=== PATIENT | female | born 1930 | race Caucasian/White ===

== ENCOUNTER 2017-05-13 14:01 | Inpatient (IN) | payer MEDICARE, MEDICAID ==
[~2017-05-13] VITALS: Ht 160 cm; Wt 54.4 kg
--- NOTE | 2017-05-13 14:30 | NUR ---
APPLE JUICE GIVEN TO PT.
[2017-05-13] MEDS ORDERED: AMIN30LI2 PO (15:18)
[2017-05-13] MEDS ORDERED: ONDA4TAB10 PO (15:18)
[2017-05-13] MEDS ORDERED: ASCO-340 PO (15:18)
[2017-05-13] MEDS ORDERED: CARV6.252 PO (15:18)
[2017-05-13] MEDS ORDERED: MIRT15TA PO (15:18)
[2017-05-13] MEDS ORDERED: ACET325T53 PO (15:18)
[2017-05-13] MEDS ORDERED: CYAN10009 PO (15:18)
[2017-05-13] MEDS ORDERED: BLOO-140 IN (15:18)
[2017-05-13] MEDS ORDERED: ATOR10TA PO (15:18)
[2017-05-13] MEDS ORDERED: ASPI81TA31 PO (15:18)
[2017-05-13] MEDS ORDERED: ARIP10TA9 PO (15:18)
[2017-05-13] MEDS ORDERED: NITR0.4T48 SL (15:18)
[2017-05-13] MEDS ORDERED: ASCO500T9 PO (15:18)
[2017-05-13] MEDS ORDERED: NUT.237L70 PO (15:18)
[2017-05-13 15:39] LABS: BASOPHILS % (AUTO) 0.2 % (0.0-2.0); EOSINOPHILS # (AUTO) 0.1 K/uL (0.0-0.7); EOSINOPHILS % (AUTO) 0.7 % (0.0-7.0); HEMOGLOBIN 13.4 g/dL (10.9-14.3); LYMPHOCYTES # (AUTO) 1.3 K/uL (20.0-40.0); LYMPHOCYTES % (AUTO) 12.9 % (20.5-51.5); MEAN CORPUSCULAR HEMOGLOBIN 31.8 uug (24.7-32.8); MEAN CORPUSCULAR HGB CONC 34 g/dL (32.3-35.6); MEAN CORPUSCULAR VOLUME 92.6 fL (75.5-95.3); MONOCYTES # (AUTO) 0.5 K/uL (2.0-10.0); MONOCYTES % (AUTO) 5.3 % (0.0-11.0); NEUTROPHILS # (AUTO) 8.1 K/uL (1.8-8.9); NEUTROPHILS % (AUTO) 80.9 % (38.5-71.5); PLATELET COUNT (AUTO) 213 K/uL (179-408)
--- NOTE | 2017-05-13 16:30 | NUR ---
PT REFUSES TO EAT OR DRINK. MDNOTIFIED.
[2017-05-13 16:35] LABS: ALANINE AMINOTRANSFERASE 11 U/L (14-59); ALKALINE PHOSPHATASE 61 U/L (50-136); ASPARTATE AMINOTRANSFERASE 22 U/L (15-37); BILIRUBIN,TOTAL 0.7 mg/dL (0.2-1.0); CARBON DIOXIDE 24 mmol/L (21-32); CHLORIDE 108 mmol/L (98-107); CREATINE KINASE, TOTAL 54 U/L (26-192); GLUCOSE 78 mg/dL (74-106); TOTAL PROTEIN, SERUM 6.8 g/dL (6.4-8.2); UREA NITROGEN, BLOOD 15 mg/dL (7-18)
[2017-05-13 16:36] LABS: POTASSIUM 4.6 mmol/L (3.5-5.1)
[2017-05-13] MEDS ORDERED: IV D5W-0.45% NS 1000 ML BAG IV ONE (16:45)
--- NOTE | 2017-05-13 16:58 | NUR ---
DR. MORALES IADMITTED THE PT , TRANSFER TO FLOOR PENDING ON BED AVAILABILITY
--- NOTE | 2017-05-13 19:07 | NUR ---
offered pt food/snack multiple times. pt refuses to eat.
[2017-05-13 21:10] VITALS: BP 128/53
--- NOTE | 2017-05-13 22:00 | NUR ---
Pt. admitted to TELE, under care of Dr. Fox Belongs List completed
--- NOTE | 2017-05-13 22:00 | NUR ---
ADMITTED PATIENT TO TELE FLOOR, VITAL SIGNS STABLE. PATIENT IS NIUEAN SPEAKING BUT UNDERSTANDS A LITTLE MAURITANIAN. PATIENT NOTED WITH BLANCHABLE REDNESS TO THE BUTTOCKS AND WOUND NOTED TO RIGHT BUTTOCK. PHOTOGRAPH TAKEN AND PLACED IN CHART.
[2017-05-13] MEDS ORDERED: DEXTROSE 50% 50 ML DISP.SYRIN IV PRN (22:30)
[2017-05-13] MEDS ORDERED: ACETAMINOPHEN 325 MG TABLET PO PRN (22:30)
[2017-05-13] MEDS ORDERED: ONDANSETRON 4 MG/2 ML VIAL IV PRN (22:30)
[2017-05-13] MEDS ORDERED: NITROGLYCERIN 0.4 MG/TAB BOTTLE SL PRN (22:30)
[2017-05-13] MEDS: IV D5/ 0.9% NACL 1,000 ML IV PRN (23:16)
[2017-05-14] VITALS: BP 104/59
[2017-05-14] MEDS ORDERED: Z GUARD REMEDY PASTE 57 GM TUBE TOP PRN (01:00)
[2017-05-14 04:00] VITALS: BP 127/49
--- NOTE | 2017-05-14 06:33 | NUR ---
PATIENT SLEPT WELL LAST NIGHT. NO DISTRESS NOTED. ALL NEEDS ATTENDED TO. PATIENT REFUSED TO TAKE WATER. NO S/S HYPOGLYCEMIA NOTED.
--- NOTE | 2017-05-14 07:20 | NUR ---
RECEIVED REPORT FROM PROOFER BLACK AND WHITE NURSE, PATIENT IN BED ASLEEP, NO EVIDENCE OF DISTRESS NOTED, BED IN LOW POSITION, SIDE RAILS UP X2.
[2017-05-14] MEDS: BLOOD SUGAR DIAGNOSTIC 1 EACH STRIP VI SCH ×4 (07:30→21:31)
[2017-05-14 08:24] LABS: BASOPHILS % (AUTO) 0.2 % (0.0-2.0); EOSINOPHILS % (AUTO) 0.6 % (0.0-7.0); HEMATOCRIT 37.3 % (31.2-41.9); HEMOGLOBIN 12.8 g/dL (10.9-14.3); LYMPHOCYTES # (AUTO) 0.7 K/uL (20.0-40.0); LYMPHOCYTES % (AUTO) 12.2 % (20.5-51.5); MEAN CORPUSCULAR HEMOGLOBIN 31.5 uug (24.7-32.8); MEAN CORPUSCULAR HGB CONC 34 g/dL (32.3-35.6); MEAN CORPUSCULAR VOLUME 92.1 fL (75.5-95.3); MONOCYTES # (AUTO) 0.5 K/uL (2.0-10.0); MONOCYTES % (AUTO) 8.1 % (0.0-11.0); NEUTROPHILS # (AUTO) 4.8 K/uL (1.8-8.9); NEUTROPHILS % (AUTO) 78.9 % (38.5-71.5); PLATELET COUNT (AUTO) 196 K/uL (179-408); RED BLOOD CELL COUNT(AUTO) 4.05 MIL/uL (3.63-4.92)
[2017-05-14 08:49] LABS: ALANINE AMINOTRANSFERASE 13 U/L (14-59); ALKALINE PHOSPHATASE 59 U/L (50-136); ASPARTATE AMINOTRANSFERASE 16 U/L (15-37); BILIRUBIN,TOTAL 0.4 mg/dL (0.2-1.0); CARBON DIOXIDE 27 mmol/L (21-32); CHLORIDE 108 mmol/L (98-107); CHOLESTEROL 107 mg/dL (<200); CREATININE 0.8 mg/dL (0.6-1.3); GLUCOSE 182 mg/dL (74-106); HDL CHOLESTEROL 37 mg/dL (40-60); MAGNESIUM 1.4 mg/dL (1.8-2.4); PHOSPHOROUS 1.9 mg/dL (2.5-4.9); POTASSIUM 3.4 mmol/L (3.5-5.1); TOTAL PROTEIN, SERUM 6.4 g/dL (6.4-8.2); TRIGLYCERIDES 69 MG/DL (30-150); UREA NITROGEN, BLOOD 10 mg/dL (7-18)
[2017-05-14] MEDS ORDERED: ASCORBIC ACID 500 MG TABLET PO SCH (09:00)
[2017-05-14] MEDS: PANTOPRAZOLE SODIUM 40 MG TABLET.DR PO SCH (09:11)
[2017-05-14] MEDS: CYANOCOBALAMIN 1,000 MCG TABLET PO SCH (09:11)
[2017-05-14] MEDS: ARIPIPRAZOLE 10 MG TABLET PO SCH (09:11)
[2017-05-14] MEDS: ASPIRIN 81 MG TAB.CHEW PO SCH (09:11)
[2017-05-14] MEDS: ASCORBIC ACID 500 MG TABLET PO SCH ×2 (09:11→17:49)
[2017-05-14] MEDS: CARVEDILOL 6.25 MG TABLET PO SCH ×2 (09:11→17:49)
[2017-05-14] MEDS ORDERED: MAGNESIUM OXIDE 400 MG TABLET PO ONE (11:15)
[2017-05-14 11:39] VITALS: BP 104/72
[2017-05-14] MEDS ORDERED: BOOST GLUCOSE CONTROL 237 ML LIQUID (VANILLA) PO SCH (12:00)
[2017-05-14 12:53] LABS: THYROID STIMULATING HORMONE 0.817 mIU/mL (0.358-3.740)
[2017-05-14] MEDS: BOOST GLUCOSE CONTROL 237 ML LIQUID (VANILLA) PO SCH ×2 (12:54→17:46)
[2017-05-14] MEDS: POTASSIUM PHOSPHATE MM 5 MMOL in IV DEXTROSE 5% 100 ML IV SCH ×4 (12:54→19:18)
--- NOTE | 2017-05-14 13:53 | NUR ---
WOUND CARE CONSULT: PT PRESENTS WITH STAGE 2 ULCER TO SACRUM, DRY LESIONS TO FACE, RASH TO BREASTFOLDS, PRESENT ON ADMISSION. FIRST STEP MATTRESS ORDERED. ALL SKIN PROTECTION MEASURES IN PLACE AND DISCUSSED WITH NURSING STAFF. WILL SEE PRN. Jorge Urbina IN AGREEMENT WITH PLAN OF CARE. Addendum: 05/14/17 at 1355 by COLUMBA COREA RN Amended: Links added.
[2017-05-14 15:46] VITALS: BP 113/50
--- NOTE | 2017-05-14 16:07 | NUR ---
performed bladder scan, and inserted sewell catheter for urinary retention.
[2017-05-14 17:33] LABS: *BILIRUBIN,URIN NEGATIVE (NEGATIVE); *BLOOD, URINE Trace-lysed (NEGATIVE); *CLARITY,URINE CLOUDY (CLEAR); *COLOR,URINE YELLOW (YELLOW); *KETONES,URINE NEGATIVE (NEGATIVE); *PROTEIN,URINE NEGATIVE (NEGATIVE); *UROBILINOGEN,URINE 0.2 E.U./dl (NORMAL); LEUKOCYTE ESTERASE ,URINE NEGATIVE (NEGATIVE); NITRITE, URINE NEGATIVE (NEGATIVE); UGLUCOSE NEGATIVE (NEGATIVE)
[2017-05-14] MEDS: IV D5/ 0.9% NACL 1,000 ML IV PRN (18:00)
[2017-05-14 18:07] LABS: BACTERIA,URINE MANY /HPF (NONE SEEN); MUCUS,URINE MANY /LPF (0-FEW); SQUAMOUS EPITHELIAL CELL,UR MODERATE /HPF (NONE SEEN); WBC,URINE 0-3 /HPF (0-3)
--- NOTE | 2017-05-14 19:48 | NUR ---
PATIENT IN BED, STILL NOT EATING ANY FOOD, BUT COOPERATIVE WITH MEDICATION, NO EVIDENCE OF DISTRESS AT THIS TIME, BED IN LOW POSITION, SIDE RAILS UP X2.
[2017-05-14 20:00] VITALS: BP 159/56
[2017-05-14] MEDS ORDERED: DOCUSATE SODIUM 250 MG CAPSULE PO SCH (21:00)
[2017-05-14] MEDS: ATORVASTATIN 10 MG TABLET PO SCH (21:23)
[2017-05-14] MEDS: MIRTAZAPINE 15 MG TABLET PO SCH (21:23)
[2017-05-14] MEDS: DOCUSATE SODIUM 100 MG CAPSULE PO SCH (21:24)
[2017-05-14] MEDS: CLOTRIMAZOLE 1% CREAM 30 GM TUBE TOP SCH (21:30)
[2017-05-14] MEDS: INSULIN REGULAR, HUMAN 300 UNIT/3 ML VIAL SQ PRN (21:38)
--- NOTE | 2017-05-14 22:25 | NUR ---
Patient in bed sleeping intermittently. Patient cooperative with medication, drinks water when offered. Vital signs stable. Last Accucheck was 180 and gave 3 units of insulin per sliding scale. Currently getting ready to transfer patient to another floor.
--- NOTE | 2017-05-14 22:40 | NUR ---
GAVE REPORT TO SHAINA IN REHAB. PATIENT IS READY TO BE TRANSFERRED DOWNSTAIRS. IN STABLE CONDITION, CHART AND ALL BELONGINGS ARE WITH PATIENT.
--- NOTE | 2017-05-14 23:00 | NUR ---
Received patient from med surg floor. Report given by med surg nurse. patient a/o X2, Marshallese speaking, with Hx of dementia. Admit Dx of hypoglycemia. pt is stable, no signs of pain, sob, or acute distress. MD Brambila aware of pt admission to med surg overflow unit. Pertinent assessment completed. pt noted with IV site on the left forearm 22g. pt on continuous IV D5NS at 60cc/hr. vitals stable at start of shift. bed in low position x2 side rails up. on an air mattress. bed alarm on. call light placed within reach of pt. encouraged pt to use call light when in need of assistance. will continue to monitor pt through shift.
[2017-05-15 00:08] VITALS: BP 153/58
--- NOTE | 2017-05-15 05:37 | NUR ---
Patient slept well through the shift. no signs of pain, sob, or acute distress. vital signs stable through shift. all needs attended to. all meds administered as ordered per md. on continuous IV D5NS running at 60cc/hr. IV site clean, patent, intact. on air mattress for skin integrity. safety measures implemented. call light placed within reach of pt. will endorse to day shift nurse.
[2017-05-15] MEDS: PANTOPRAZOLE SODIUM 40 MG TABLET.DR PO SCH (06:15)
[2017-05-15] MEDS: BLOOD SUGAR DIAGNOSTIC 1 EACH STRIP VI SCH ×4 (06:34→20:34)
[2017-05-15 07:30] VITALS: BP 120/51
[2017-05-15] MEDS: PROTEIN SUPPLEMENT (PROSTAT) 30 ML LIQUID PO SCH (08:00)
[2017-05-15] MEDS: CYANOCOBALAMIN 1,000 MCG TABLET PO SCH (08:41)
[2017-05-15] MEDS: ASPIRIN 81 MG TAB.CHEW PO SCH (08:41)
[2017-05-15] MEDS: BOOST GLUCOSE CONTROL 237 ML LIQUID (VANILLA) PO SCH ×3 (08:41→16:35)
[2017-05-15] MEDS: CARVEDILOL 6.25 MG TABLET PO SCH ×2 (08:41→18:00)
[2017-05-15] MEDS: ASCORBIC ACID 500 MG TABLET PO SCH ×2 (08:41→16:29)
[2017-05-15] MEDS: CLOTRIMAZOLE 1% CREAM 30 GM TUBE TOP SCH ×2 (08:46→20:36)
[2017-05-15] MEDS: ARIPIPRAZOLE 10 MG TABLET PO SCH (10:12)
--- NOTE | 2017-05-15 11:41 | NUR ---
SBAR report received, board updated. Pt assessed, no c/o pain, no SOB, or acute distress noted. Pt V/S taken again 148/58, BP medication along with all other routine medications administered, dietary called for delivery of prostat. Bed in lowest position, locked, with side rails up x2. All comfort and safety measures met. IV checked and flushed, patent. Personal items and call light placed within reach, Pt reminded to utilize call button for assistance. Will continue to monitor.
[2017-05-15] MEDS: INSULIN REGULAR, HUMAN 300 UNIT/3 ML VIAL SQ PRN ×3 (12:22→20:43)
[2017-05-15] MEDS: IV D5/ 0.9% NACL 1,000 ML IV PRN (14:37)
--- NOTE | 2017-05-15 19:30 | NUR ---
patient received from day shift nurse. shift report at bedside. patient lying comfortably at start of shift with no signs of pain, sob, or acute distress. pt is a/o x2-3, [place] Islander speaking only. pt on air mattress. bed in low position x2 side rails up. vital signs stable at start of shift. pertinent assessment completed. call light placed within reach of pt. will continue to monitor pt through shift.
--- NOTE | 2017-05-15 19:35 | NUR ---
Pt BS 165 prior to dinner, 3 units of insulin coverage provided. Replacement dinner tray provided due to cultural preference. Diaper changed and wound care provided. Pt repositioned and call light within reach. All comfort and safety measures met. Will endorse to on coming film processing shift supervisor.
[2017-05-15 19:58] VITALS: BP 133/53
--- NOTE | 2017-05-15 20:33 | NUR ---
Blood sugar level at 142. covered pt with 2 units of insulin. will continue to monitor pt through shift.
[2017-05-15] MEDS: ATORVASTATIN 10 MG TABLET PO SCH (20:34)
[2017-05-15] MEDS: DOCUSATE SODIUM 100 MG CAPSULE PO SCH (20:34)
[2017-05-15] MEDS: MIRTAZAPINE 15 MG TABLET PO SCH (20:34)
--- NOTE | 2017-05-16 05:47 | NUR ---
Patient slept intermittently through the shift. no signs of pain, sob, or acute distress. all needs attended to. all meds administered as ordered per md. on continuous IV D5NS. IV site clean, intact, & patent with no signs of infiltration. v/s stable through shift. safety measures implemented. will endorse to day shift nurse.
[2017-05-16] MEDS: PANTOPRAZOLE SODIUM 40 MG TABLET.DR PO SCH (06:09)
[2017-05-16] MEDS: IV D5/ 0.9% NACL 1,000 ML IV PRN (06:23)
--- NOTE | 2017-05-16 06:26 | NUR ---
blood sugar this AM is 149. Per protocol patient should receive 2 units. will endorse to day shift nurse to give insulin with breakfast tray.
[2017-05-16] MEDS: BLOOD SUGAR DIAGNOSTIC 1 EACH STRIP VI SCH ×3 (06:31→16:21)
[2017-05-16 06:47] LABS: EOSINOPHILS # (AUTO) 0.2 K/uL (0.0-0.7); MONOCYTES # (AUTO) 0.7 K/uL (2.0-10.0)
[2017-05-16 07:09] LABS: BASOPHILS % (AUTO) 0.2 % (0.0-2.0); EOSINOPHILS % (AUTO) 2.5 % (0.0-7.0); HEMOGLOBIN 12.4 g/dL (10.9-14.3); LYMPHOCYTES # (AUTO) 2.3 K/uL (20.0-40.0); LYMPHOCYTES % (AUTO) 29.9 % (20.5-51.5); MEAN CORPUSCULAR HEMOGLOBIN 31.4 uug (24.7-32.8); MEAN CORPUSCULAR HGB CONC 35 g/dL (32.3-35.6); MONOCYTES % (AUTO) 9.6 % (0.0-11.0); NEUTROPHILS # (AUTO) 4.4 K/uL (1.8-8.9); NEUTROPHILS % (AUTO) 57.8 % (38.5-71.5); PLATELET COUNT (AUTO) 185 K/uL (179-408); RED BLOOD CELL COUNT(AUTO) 3.96 MIL/uL (3.63-4.92)
[2017-05-16 07:10] LABS: ALANINE AMINOTRANSFERASE 12 U/L (14-59); ALKALINE PHOSPHATASE 59 U/L (50-136); ASPARTATE AMINOTRANSFERASE 12 U/L (15-37); BILIRUBIN,TOTAL 0.2 mg/dL (0.2-1.0); CARBON DIOXIDE 29 mmol/L (21-32); CHLORIDE 110 mmol/L (98-107); CREATININE 0.8 mg/dL (0.6-1.3); GLUCOSE 158 mg/dL (74-106); MAGNESIUM 1.5 mg/dL (1.8-2.4); PHOSPHOROUS 2.3 mg/dL (2.5-4.9); POTASSIUM 3.1 mmol/L (3.5-5.1); TOTAL PROTEIN, SERUM 5.7 g/dL (6.4-8.2); UREA NITROGEN, BLOOD 5 mg/dL (7-18)
[2017-05-16 07:14] LABS: WHITE BLOOD COUNT (AUTO) 7.6 K/uL (3.8-11.8)
[2017-05-16] MEDS: PROTEIN SUPPLEMENT (PROSTAT) 30 ML LIQUID PO SCH (08:00)
[2017-05-16] MEDS: BOOST GLUCOSE CONTROL 237 ML LIQUID (VANILLA) PO SCH ×3 (08:00→17:00)
[2017-05-16 08:07] VITALS: BP 124/57
[2017-05-16] MEDS: CLOTRIMAZOLE 1% CREAM 30 GM TUBE TOP SCH (09:12)
[2017-05-16] MEDS: ASCORBIC ACID 500 MG TABLET PO SCH ×2 (09:15→17:00)
[2017-05-16] MEDS: CARVEDILOL 6.25 MG TABLET PO SCH ×2 (09:15→18:47)
[2017-05-16] MEDS: CYANOCOBALAMIN 1,000 MCG TABLET PO SCH (09:15)
[2017-05-16] MEDS: ARIPIPRAZOLE 10 MG TABLET PO SCH (09:15)
[2017-05-16] MEDS: ASPIRIN 81 MG TAB.CHEW PO SCH (09:15)
[2017-05-16] MEDS: INSULIN REGULAR, HUMAN 300 UNIT/3 ML VIAL SQ PRN ×2 (09:19→16:44)
[2017-05-16] MEDS ORDERED: NEUTRA PHOS PACKET PO ONE (12:15)
[2017-05-16] MEDS ORDERED: POTASSIUM CHLORIDE 20 MEQ TAB.PRT.SR PO ONE (12:15)
[2017-05-16] MEDS ORDERED: MAGNESIUM OXIDE 400 MG TABLET PO ONE (12:15)
[2017-05-16] MEDS ORDERED: OMEP20CA10 PO (18:38)
[2017-05-16] MEDS ORDERED: DOCU100C36 PO (18:38)
[2017-05-16] MEDS ORDERED: CLOT30CR24 TOP (18:38)
[2017-05-16] MEDS ORDERED: FLUT1BLS IH (18:56)
[2017-05-16] MEDS ORDERED: ALBU1.257 NEB (18:56)
--- NOTE | 2017-05-16 19:55 | NUR ---
Pt has slept most of the shift. Pt continues to waver in compliance with consuming meals, but ate nearly 100% of dinner. Pt refused several medications today due to additional and large size of new medications. D/C orders received. Wound pictures taken and placed in chart, wound care provided. V/S taken to be 143/54, 57, 98% RA, 16, and 97.3. BS 149, 2 units of insulin administered for coverage. Pt continues to deny any c/o pain throughout this shift. Pt voided about 600 ml via sewell catheter. Discharge paperwork in progress, including Pt teaching. Personal belongings accounted for, signed, and copied. No home medications to return. Pt refuses vaccinations at this time. All safety and comfort measures met. Call light within reach. Will endorse to on coming night sift for anticipated transfer at 2030 via ambulance to [place].
[2017-05-16 20:04] VITALS: BP 138/58
--- NOTE | 2017-05-16 21:15 | NUR ---
Patient was discharged, via ambulance, to go back to [facility], stable and not in any form of distress, with no signs and no symptom of hypoglycemia or hyperglycemia upon discharge. Belongings and discharge instructions given to ambulance transport, all reports were called to Edilma KEARNS at [place], verbalized understanding.
== END 2017-05-16 21:15 | DRG 637 ==
LOC: ER 14:01 → TELE 21:48 → MED 05-14 11:40 → MEDSURG1 05-14 22:55
PROVIDERS: ADMIT Internal Medicine; ATTEND Internal Medicine
DX: E11.649 Type 2 diabetes mellitus with hypoglycemia without coma (principal); E43 Unspecified severe protein-calorie malnutrition; G93.40 Encephalopathy, unspecified; D68.59 Other primary thrombophilia; E11.65 Type 2 diabetes mellitus with hyperglycemia; I11.9 Hypertensive heart disease without heart failure; G30.9 Alzheimer's disease, unspecified; E83.42 Hypomagnesemia; E83.39 Other disorders of phosphorus metabolism; F02.80 Dementia in other diseases classified elsewhere, unspecified severity, without behavioral disturbance, psychotic disturbance, mood disturbance, and anxiety; Z79.4 Long term (current) use of insulin; F50.89 Other specified eating disorder; Z68.21 Body mass index [BMI] 21.0-21.9, adult; E87.6 Hypokalemia; Z99.3 Dependence on wheelchair; Z87.891 Personal history of nicotine dependence; Z86.718 Personal history of other venous thrombosis and embolism; Z79.899 Other long term (current) drug therapy; Z79.82 Long term (current) use of aspirin; M81.0 Age-related osteoporosis without current pathological fracture; F20.9 Schizophrenia, unspecified
CPT/HCPCS: 36415; 70030-TC; 71045; 83735; 84100; 84443; 85025; 87086; 93005; A4663; J1815; J3490; J7030; J7042; J7060

== ENCOUNTER 2017-11-23 15:48 | Inpatient (IN) | payer MEDICARE, MEDICAID ==
[~2017-11-23] VITALS: Ht 157.5 cm; Wt 63.5 kg
[~2017-11-23 15:48] MED LIST: ACET325T53 PO; ALBU1.257 NEB; AMIN30LI2 PO; ARIP10TA9 PO; ASCO500T9 PO; ASPI81TA31 PO; BLOO-140 IN; CARV6.252 PO; CLOT30CR24 TOP; DOCU100C36 PO; FLUT1BLS IH; MIRT15TA PO; NITR0.4T48 SL; NUT.237L70 PO; OMEP20CA10 PO; ONDA4TAB10 PO
[2017-11-23] MEDS ORDERED: VANCOMYCIN IV 1,000 MG in IV DEXTROSE 5% 250 ML IV ONE (16:00)
[2017-11-23] MEDS ORDERED: PIPERACILLIN SODIUM/TAZOBACTAM 3.375 G in IV DEXTROSE 5% 50 ML IV ONE (16:00)
[2017-11-23 16:36] LABS: BASOPHILS % (AUTO) 0.4 % (0.0-2.0); EOSINOPHILS # (AUTO) 0.1 K/uL (0.0-0.7); EOSINOPHILS % (AUTO) 0.6 % (0.0-7.0); HEMATOCRIT 34.6 % (31.2-41.9); HEMOGLOBIN 11.5 g/dL (10.9-14.3); LYMPHOCYTES # (AUTO) 1.9 K/uL (20.0-40.0); LYMPHOCYTES % (AUTO) 22.3 % (20.5-51.5); MEAN CORPUSCULAR HEMOGLOBIN 30.9 uug (24.7-32.8); MEAN CORPUSCULAR HGB CONC 33 g/dL (32.3-35.6); MEAN CORPUSCULAR VOLUME 93.2 fL (75.5-95.3); MONOCYTES # (AUTO) 0.6 K/uL (2.0-10.0); MONOCYTES % (AUTO) 6.6 % (0.0-11.0); NEUTROPHILS # (AUTO) 5.9 K/uL (1.8-8.9); NEUTROPHILS % (AUTO) 70.1 % (38.5-71.5); PLATELET COUNT (AUTO) 220 K/uL (179-408); RED BLOOD CELL COUNT(AUTO) 3.72 MIL/uL (3.63-4.92); WHITE BLOOD COUNT (AUTO) 8.4 K/uL (3.8-11.8)
[2017-11-23] MEDS ORDERED: PIPERACILLIN/TAZOBACTAM/D5W 50 ML IV ONE (16:37)
[2017-11-23] MEDS ORDERED: VANCOMYCIN IV 200 ML ONE (16:37)
[2017-11-23 16:48] LABS: CARBON DIOXIDE 30 mmol/L (21-32); CHLORIDE 105 mmol/L (98-107); CREATININE 1.1 mg/dL (0.6-1.3); GLUCOSE 215 mg/dL (74-106); POTASSIUM 4.2 mmol/L (3.5-5.1); UREA NITROGEN, BLOOD 14 mg/dL (7-18)
[2017-11-23 16:54] LABS: ALANINE AMINOTRANSFERASE 15 U/L (14-59); ALKALINE PHOSPHATASE 62 U/L (50-136); ASPARTATE AMINOTRANSFERASE 8 U/L (15-37); BILIRUBIN,DIRECT 0.1 mg/dL (0.0-0.2); BILIRUBIN,TOTAL 0.4 mg/dL (0.2-1.0); TOTAL PROTEIN, SERUM 6.7 g/dL (6.4-8.2)
--- NOTE | 2017-11-23 17:18 | NUR ---
mse completed, dressing to lef mahendra houston, svbar report o opal sheth, belongings list done.
[2017-11-23] MEDS ORDERED: ONDANSETRON 4 MG/2 ML VIAL IV PRN (17:30)
[2017-11-23] MEDS ORDERED: DEXTROSE 50% 50 ML DISP.SYRIN IV PRN (17:30)
[2017-11-23] MEDS ORDERED: MORPHINE SULFATE 2 MG/1 ML DISP.SYRIN IV PRN (17:30)
[2017-11-23] MEDS ORDERED: AMIN30LI27 PO (17:31)
[2017-11-23] MEDS ORDERED: INSU100V7 SQ (17:31)
[2017-11-23] MEDS ORDERED: MULT-213 PO (17:31)
[2017-11-23] MEDS ORDERED: DOCU100C36 PO (17:31)
[2017-11-23] MEDS ORDERED: MELA3TAB PO (17:31)
[2017-11-23] MEDS ORDERED: MAGN400T6 PO (17:31)
[2017-11-23] MEDS ORDERED: NUT.237L71 PO (17:31)
[2017-11-23] MEDS ORDERED: MIRT15TA PO (17:31)
[2017-11-23] MEDS ORDERED: FLUT1BLS IH (17:31)
--- NOTE | 2017-11-23 17:45 | NUR ---
Received report from ER NURSE, patient received on unit, patient is very hostile and combative with staff providing care, refused to take off clothing. ambulates to restroom with standby assist. Patient was given a meal and had a BM immediately after. Patient refused at this time to allow pictures to be taken or any other care to be performed.
[2017-11-23 17:46] VITALS: BP 139/48
--- NOTE | 2017-11-23 17:56 | NUR ---
CLINICAL PHARMACY NOTE: VANCOMYCIN Request for vancomycin dosing on 87 y/o female for cellulitis left heel ulcer Temp 98.4 BUN 14 scr 1.1 WBC 8.4 Temp 98.4 also on Zosyn Patient given Vancomycin in ER at 1600. Will dose by levels due decrease renal function. Random level ordered for tomorrow afternoon
[2017-11-23 19:00] VITALS: BP 126/44
--- NOTE | 2017-11-23 19:20 | NUR ---
Received pt sitting on the side of the bed. AAOx2. Denies any pain or SOB at this time. In no acute distress. IV site on left FA intact and patent. NSR on tele at 69/min. Safety measure initiated and call christian within reach.
[2017-11-23] MEDS: BLOOD SUGAR DIAGNOSTIC 1 EACH STRIP VI SCH (20:09)
[2017-11-23] MEDS: INSULIN REGULAR, HUMAN 300 UNIT/3 ML VIAL SQ PRN (20:16)
--- NOTE | 2017-11-23 20:20 | NUR ---
Patient seen by MEE Lancaster with new orders made and carried out.
[2017-11-23] MEDS ORDERED: CEFTRIAXONE 1 G in IV DEXTROSE 5% 50 ML IV SCH (21:00)
[2017-11-23] MEDS: DOXYCYCLINE HYCLATE 100 MG TABLET PO SCH (21:14)
[2017-11-23] MEDS: MUPIROCIN 2% OINT 22 GM TUBE TP SCH (21:20)
--- NOTE | 2017-11-23 23:00 | NUR ---
@ 2200- Pt getting very anxious. Was wondering around the hallway, trying to go to other patients room, refusing to go back to her room. Doctor Fox came and was able to talk to patient and patient went back to her room. @2245 - Patient sitting at the side of the bed, refusing to lay down. Tele monitor was off and refusing to have it check or change the leads. Still anxious. Doctor Espinoza made aware with new order for Lorazepam 1mg IV PRN
[2017-11-23] MEDS: LORAZEPAM 2 MG/1 ML VIAL IV PRN (23:10)
[2017-11-24] VITALS: BP 102/47
[2017-11-24] MEDS ORDERED: PIPERACILLIN/TAZOBACTAM/D5W 3.375 G in PREMIXED 1 EACH IV SCH ×2
[2017-11-24 04:00] VITALS: BP 165/59
--- NOTE | 2017-11-24 04:17 | NUR ---
Patient BP 174/64 on right arm and rescheck on left arm 165/62 and 165/59. Patient in no acute distress. Other VS WNL. O2 sat at 94% on RA. Called house calls nurse Doctor Rogerio Aquino to inform of BP, awaiting for reply.
--- NOTE | 2017-11-24 04:50 | NUR ---
Telephone call to MEE Aquino again, still awaiting for return call.
--- NOTE | 2017-11-24 05:00 | NUR ---
MEE Aquino called back, informed of pt BP and ordered Hydralazine 25mg po x1. Order read back and verified.
[2017-11-24] MEDS ORDERED: hydrALAZINE HCL 25 MG TABLET PO ONE (05:15)
--- NOTE | 2017-11-24 05:15 | NUR ---
Patient refused to take Hydralazine, tried several times but patient continue to refused. Also refused to have BP talken.
--- NOTE | 2017-11-24 06:31 | NUR ---
AAOx2. No signs or symptoms of pain or SOB at this time. In no acute distress. With periods of anxiety during care, but relaxes when left alone. IV site on left FA remains intact and patent. NSR on tele at 61/min. with occasional sinus anju between 58/59/min. Left heel dressing remains intact. Safety measure maintained and call christian within reach.
[2017-11-24] MEDS: BLOOD SUGAR DIAGNOSTIC 1 EACH STRIP VI SCH ×4 (06:45→20:52)
[2017-11-24] MEDS: PANTOPRAZOLE SODIUM 40 MG TABLET.DR PO SCH (06:47)
--- NOTE | 2017-11-24 06:48 | NUR ---
Patient noted with no urine output since last night. Diaper still dry at this time. Bladder scan done and noted with 1L of urine on the bladder. Informed charge nurse and instructed this nurse to place eswell catheter. Sewell catheter place 16 FR and patient had 1 Liter of urine output on urinary bag. Doctor Dominique made aware. Sewell catheter kept in place.
--- NOTE | 2017-11-24 07:15 | NUR ---
Pt sleeping in bed, no immediate s/s of SOB, distress or discomfort, bed at lowest position for safety
[2017-11-24] MEDS: INSULIN REGULAR, HUMAN 300 UNIT/3 ML VIAL SQ PRN ×2 (08:25→12:30)
[2017-11-24] MEDS: MUPIROCIN 2% OINT 22 GM TUBE TP SCH ×2 (08:26→20:14)
[2017-11-24] MEDS: DOXYCYCLINE HYCLATE 100 MG TABLET PO SCH ×2 (08:28→20:15)
[2017-11-24] MEDS: ENOXAPARIN SODIUM 40 MG/0.4 ML DISP.SYRIN SQ SCH (08:30)
--- NOTE | 2017-11-24 08:41 | NUR ---
CLINICAL PHARMACY NOTE: VANCOMYCIN Request for vancomycin dosing on 87 y/o female for cellulitis left heel ulcer Temp 98 BUN 14 (11/23) scr 1.1 (11/23) WBC 8.4(11/23) also on Zosyn Random: pending today 1500 Patient given Vancomycin 1 gm in ER at 1600 yesterday 11/23. Will dose by levels due decrease renal function. Random level ordered for today at 1500. will check and re-dose as needed. Will follow
--- NOTE | 2017-11-24 08:50 | NUR ---
Wound care done on the left heel, Bactroban applied, covered with Mepilex and wrapped in Kerlix. No discomfort noted while providing care.
[2017-11-24 08:55] LABS: *BILIRUBIN,URIN NEGATIVE (NEGATIVE); *BLOOD, URINE NEGATIVE (NEGATIVE); *CLARITY,URINE CLEAR (CLEAR); *COLOR,URINE YELLOW (YELLOW); *KETONES,URINE NEGATIVE (NEGATIVE); *PROTEIN,URINE NEGATIVE (NEGATIVE); *UROBILINOGEN,URINE 0.2 E.U./dl (NORMAL); LEUKOCYTE ESTERASE ,URINE TRACE (NEGATIVE); NITRITE, URINE POSITIVE (NEGATIVE); PH,URINE 6.5 (5.0-8.0); UGLUCOSE NEGATIVE (NEGATIVE)
[2017-11-24 08:56] LABS: BACTERIA,URINE FEW /HPF (NONE SEEN); RBC,URINE 0-3 /HPF (0-3); SQUAMOUS EPITHELIAL CELL,UR FEW /HPF (NONE SEEN); WBC,URINE 0-3 /HPF (0-3)
[2017-11-24 11:42] VITALS: BP 135/49
--- NOTE | 2017-11-24 12:32 | NUR ---
Pt has been combative this morning with RIVET SORTER and myself. Pt is noted to swing her arms in an attempt to hit, noted to dig her fingernails into my hand while trying to get the Accu check done for the schedule 1130.
--- NOTE | 2017-11-24 12:40 | NUR ---
Wound care nurse assessed pt., orders as follow: Bactroban on left heel eschar, Mepilex and wrap loosely with Kerlix. Pt was noted to be calm during assessment. Addendum: 11/24/17 at 1251 by FAUSTO SWEENEY RN Bilateral heels offloading with a pillow
--- NOTE | 2017-11-24 12:53 | NUR ---
WOUND CARE CONSULT: PT PRESENTS WITH LEFT HEEL UNSTAGEABLE ULCER, PRESENT ON ADMISSION. RT HEEL SCAR AND BONY SACRAL AREA PROTECTED WITH MEPILEX. RECOMMEND DPM CONSULT. PT WALKS WITH WALKER WITH P.T. ALL SKIN PROTECTION AND WOUND CARE RECOMMENDATIONS DISCUSSED WITH NURSING STAFF. WILL SEE PRN. JACOBO IN AGREEMENT WITH PLAN OF CARE. Addendum: 11/24/17 at 1257 by COLUMBA COREA RN Amended: Links added.
[2017-11-24 15:47] VITALS: BP 114/69
--- NOTE | 2017-11-24 15:56 | NUR ---
Pt is positive for MRSA of the nares. Contact Isolation in place
--- NOTE | 2017-11-24 16:43 | NUR ---
Savita Valenzuela in the room to preform debridement on the left heel. Consent obtained after procedure was translated by ER nurse in Trinidadian language.
--- NOTE | 2017-11-24 19:09 | NUR ---
Pt noted to be sitting by the edge of the bed. Pt is Finnish speaking and sometimes communicates in Latvian. No immediate s/s of SOB, pain, distress or discomfort. Noted pt to walk with walker to the RR and to the chair.
[2017-11-24 19:25] VITALS: BP 121/53
[2017-11-24] MEDS: LORAZEPAM 2 MG/1 ML VIAL IV PRN (19:26)
[2017-11-24] MEDS: MUPIROCIN 2% OINT 22 GM TUBE NS SCH (20:16)
--- NOTE | 2017-11-24 20:30 | NUR ---
Received patient sitting on edge of her bed, no SOB denies chest pain. Slightly agitated, refused to be touched. Youssef catheter in place w/ moderate output. Patient refused night accu check. Vital signs WNL.
[2017-11-24] MEDS ORDERED: MUPIROCIN 2% OINT 22 GM TUBE NS SCH (21:00)
--- NOTE | 2017-11-24 21:01 | NUR ---
Patient appears sleepy, placed back to bed. Fall precaution observed.
[2017-11-24] MEDS: MELATONIN 3 MG TABLET PO SCH (22:52)
[2017-11-24] MEDS: MIRTAZAPINE 15 MG TABLET PO SCH (22:53)
[2017-11-24] MEDS: ARIPIPRAZOLE 10 MG TABLET PO SCH (22:53)
[2017-11-24] MEDS: DOCUSATE SODIUM 100 MG CAPSULE PO SCH (22:54)
[2017-11-25 03:30] VITALS: BP 128/59
[2017-11-25] MEDS: PANTOPRAZOLE SODIUM 40 MG TABLET.DR PO SCH (06:22)
[2017-11-25] MEDS: BLOOD SUGAR DIAGNOSTIC 1 EACH STRIP VI SCH ×4 (06:30→20:55)
--- NOTE | 2017-11-25 06:58 | NUR ---
Patient tolerated all routine po meds. Slept well throughout shift, vital signs WNL.
[2017-11-25] MEDS: PROTEIN SUPPLEMENT (PROSTAT) 30 ML LIQUID PO SCH ×3 (08:00→17:00)
[2017-11-25] MEDS: ENSURE ENLIVE (VAN) 240 ML LIQUID PO SCH ×4 (08:00→17:00)
[2017-11-25] MEDS: INSULIN REGULAR, HUMAN 300 UNIT/3 ML VIAL SQ PRN (08:27)
[2017-11-25] MEDS: MUPIROCIN 2% OINT 22 GM TUBE TP SCH ×2 (09:00→21:39)
[2017-11-25] MEDS: MUPIROCIN 2% OINT 22 GM TUBE NS SCH ×2 (09:00→21:39)
[2017-11-25] MEDS: ASCORBIC ACID 500 MG TABLET PO SCH (09:00)
[2017-11-25] MEDS: MULTIVIT, IRON, MIN NO. 8, FA TABLET PO SCH (09:00)
[2017-11-25] MEDS: DOXYCYCLINE HYCLATE 100 MG TABLET PO SCH (09:00)
[2017-11-25] MEDS ORDERED: [UNRECOGNIZED DRUG - OTHER] PO SCH (09:00)
[2017-11-25] MEDS: ASPIRIN 81 MG TAB.CHEW PO SCH (09:00)
[2017-11-25] MEDS ORDERED: Medication Not On Formulary EA (Amino Acids/Protein Hydrolys (Pro-Stat Sugar Free Liquid PO SCH (09:00)
[2017-11-25] MEDS ORDERED: Medication Not On Formulary EA (Multivitamins W-Minerals (Multivitamin With Minerals) 1 PO SCH (09:00)
[2017-11-25] MEDS ORDERED: NUT TX GLUC INTOL LF SOY PO SCH (09:00)
[2017-11-25] MEDS: FLUTICASONE/VILANTEROL 1 EACH BLST.W.DEV IH SCH (09:00)
[2017-11-25] MEDS ORDERED: FIBER PO SCH (09:00)
[2017-11-25] MEDS: ENOXAPARIN SODIUM 40 MG/0.4 ML DISP.SYRIN SQ SCH (09:47)
--- NOTE | 2017-11-25 09:55 | NUR ---
Pt refused her morning medications. Pt is noted to be upset and swinging her arms at me. Pt was trying to throw her breakfast tray. Pt refused to have her Ensure and Prostat. Pt doesn't want to be woken up
--- NOTE | 2017-11-25 10:00 | NUR ---
Psych consult ordered per Dr. Brambila. Dr Brambila also aware of Gram positive cocci in the blood
--- NOTE | 2017-11-25 10:01 | NUR ---
Received critical blood culture labs from [facility]
--- NOTE | 2017-11-25 10:20 | NUR ---
TO order for psychologist consult, noted and carried out. Left message to Dr. Gonzalez, also called U and it was recommended to call his phone number
--- NOTE | 2017-11-25 10:47 | NUR ---
Seen and evaluate by Dr. Salcido, left foot dressing change by doctor. Change only if dressing get disheveled.
--- NOTE | 2017-11-25 11:59 | NUR ---
Tried waking pt up for Accu ck, pt starts swing her arms and states "what". I explain accu ck but pt is noted to be agitated.
--- NOTE | 2017-11-25 13:40 | NUR ---
Attempted to take VS and pt grabbed BP cuff and threw it across the other side of the bed. Informed pt in Malian language food (pitaniye) and attempted to wake the pt up. Pt is noted agitated and aggressive, physically trying to grab and hit.
--- NOTE | 2017-11-25 14:11 | NUR ---
Informed per PT that pt refused to participate in physical therapy today.
--- NOTE | 2017-11-25 16:42 | NUR ---
Pt resting/sleeping. Compliant with Accu ck.
--- NOTE | 2017-11-25 17:28 | NUR ---
Pt is arousable to touch and name. Pt sleeping/resting at this time and refuses Prostat and Ensure.
--- NOTE | 2017-11-25 17:46 | NUR ---
Dr Brambila aware that pt refused medications, pt has refused all 3 meals and pt refused physical therapy.
[2017-11-25] MEDS: MIRTAZAPINE 15 MG TABLET PO SCH (18:00)
[2017-11-25 18:44] VITALS: BP 143/46
--- NOTE | 2017-11-25 18:48 | NUR ---
Pt sleeping in bed, able to take VS without the pt getting agitated: Temp 97.9, HR 63, 99%RA, BP 143/46 & RR24. Pt is arousable to touch. Bed at lowest position for safety
[2017-11-25 19:00] VITALS: BP 141/51
--- NOTE | 2017-11-25 20:00 | NUR ---
Pt observed to be agitated and combative at this time. Relaxation and frequent reorientation provided. Pt also refusing lab draw at this time. Safe environment provided at all times. Will continue to monitor closely.
--- NOTE | 2017-11-25 20:16 | NUR ---
PHARMACY CLINICAL NOTES ( VANCOMYCIN DOSING) S: 87 YO FEMALE WITH DX OF SEPSIS( BC: G+C); ORDERED VANCOMYCIN O: BUN/SCR 14/1.1 ; WBC 8.4 ( FROM 11/23) TEMP 98.1 A/P: DUE TO ADVANCED AGED AND COMPROMISED RENAL FXN WILL DOSE VANCO BY FALL OF LEVEL. WILL ADMINISTER VANCOMYCIN 1 GM X 1 TONIGHT. ORDERED BUN/SCR FOR TOMORROW TO CHECK CURRENT RENAL FX. WILL ORDER LEVEL AND DOSE VANCO ACCORDINGLY. WILL CONTINUE TO MONITOR.
[2017-11-25] MEDS: LORAZEPAM 2 MG/1 ML VIAL IV PRN (20:29)
[2017-11-25] MEDS ORDERED: VANCOMYCIN IV 1 G in PREMIXED 0 EACH IV ONE (21:00)
[2017-11-25] MEDS: CEFTRIAXONE 1 G in IV DEXTROSE 5% 50 ML IV SCH (21:20)
[2017-11-25] MEDS: MELATONIN 3 MG TABLET PO SCH (21:40)
[2017-11-25] MEDS: DOCUSATE SODIUM 100 MG CAPSULE PO SCH (21:40)
[2017-11-25] MEDS: ARIPIPRAZOLE 10 MG TABLET PO SCH (21:40)
[2017-11-26 04:00] VITALS: BP 152/62
[2017-11-26] MEDS: BLOOD SUGAR DIAGNOSTIC 1 EACH STRIP VI SCH ×4 (06:34→17:26)
[2017-11-26] MEDS: PANTOPRAZOLE SODIUM 40 MG TABLET.DR PO SCH (06:34)
--- NOTE | 2017-11-26 06:49 | NUR ---
Pt slept throughout the night, pt remains confused at this time. Frequent reorientation provided. All needs attended too. Lab drawn as ordered this morning.
--- NOTE | 2017-11-26 07:23 | NUR ---
Received pt sleeping at this in a supine position. No immediate s/s of SOB, pain, distress or discomfort. Bed at lowest position for safety.
[2017-11-26 07:25] LABS: CARBON DIOXIDE 28 mmol/L (21-32); CHLORIDE 100 mmol/L (98-107); CREATININE 0.9 mg/dL (0.6-1.3); GLUCOSE 121 mg/dL (74-106); UREA NITROGEN, BLOOD 14 mg/dL (7-18)
[2017-11-26] MEDS: PROTEIN SUPPLEMENT (PROSTAT) 30 ML LIQUID PO SCH ×3 (08:00→18:09)
[2017-11-26] MEDS: ENSURE ENLIVE (VAN) 240 ML LIQUID PO SCH ×3 (08:00→17:00)
[2017-11-26] MEDS: ASPIRIN 81 MG TAB.CHEW PO SCH (09:00)
[2017-11-26] MEDS: FLUTICASONE/VILANTEROL 1 EACH BLST.W.DEV IH SCH (09:00)
[2017-11-26] MEDS: ASCORBIC ACID 500 MG TABLET PO SCH (09:00)
[2017-11-26] MEDS: MULTIVIT, IRON, MIN NO. 8, FA TABLET PO SCH (09:00)
--- NOTE | 2017-11-26 09:11 | NUR ---
Clinical Pharmacy Note: Vancomycin Dosing per Pharmacy Subjective: Vancomycin IV to continue on this 87 yo female patient for sepsis. Objective: BUN 14/Scr 0.9 WBC 8.4 (11/25) Temperature 98 ht 157 cm wt 63 kg Assessment/Plan: Patient received vanco 1000 mg IVPB x1 dose on 11/25 at 2200. Will start vancomycin 1000mg IVPB Q32hr for a predicted vancomycin steady state trough level of 15 mcg/ml. 2nd dose is due on 11/27 at 0600. Will draw a vancomycin trough level prior to the 4th dose of vancomycin (not ordered yet). Will monitor renal function and adjust vancomycin dose, if needed, should renal function change significantly. Will follow daily.
--- NOTE | 2017-11-26 09:30 | NUR ---
Wound care on the left heel done by Dr. Salcido
[2017-11-26] MEDS: ENOXAPARIN SODIUM 40 MG/0.4 ML DISP.SYRIN SQ SCH (09:35)
[2017-11-26] MEDS: MUPIROCIN 2% OINT 22 GM TUBE NS SCH ×2 (09:44→21:50)
[2017-11-26] MEDS: MUPIROCIN 2% OINT 22 GM TUBE TP SCH ×2 (09:45→21:57)
--- NOTE | 2017-11-26 09:48 | NUR ---
Pt refused PO pills. Able to give her Lovenox and Bactroban for the nares. Pt started to swing her right arm at me, tried to grab me. Tried to explain and inform her on her medications. Pt is agitated and wants to left alone. Noted her breakfast on the table, offered her breakfast and pt pushed the table away. Addendum: 11/26/17 at 0954 by FAUSTO SWEENEY RN Able to place Mepilex on the right heel and cover with Kerlix. Both heels elevated at this time
--- NOTE | 2017-11-26 12:37 | NUR ---
Pt is noted to get agitated when trying to provide nursing care. Pt has refused to have VS done. Per DIRECTOR ENERGY the pt scratched her on her right hand when trying to get VS. Pt refused her breakfast, Prostat and Ensure this morning. Pt is refusing lunch and Ensure as well. Pt refuse Accu check after explaining it to the pt. Noted the pt to swing her hand at me which trying to do Accu ck, tried to grab the Accu ck machine. Pt noted to be agitated.
[2017-11-26 13:50] LABS: MAGNESIUM 1.8 mg/dL (1.8-2.4); PHOSPHOROUS 3.7 mg/dL (2.5-4.9)
--- NOTE | 2017-11-26 16:25 | NUR ---
Gee CABAN translated in Nigerian that if she would allow the LEGAL NURSE CONSULTANT to take VS, pt became combative and refused.
[2017-11-26] MEDS: MIRTAZAPINE 15 MG TABLET PO SCH (17:14)
--- NOTE | 2017-11-26 17:17 | NUR ---
Pt noted to wake up. Offered pt dinner and is eating on her own, crushed her 1800 scheduled Remeron and pt eat it with food on her own. Addendum: 11/26/17 at 1720 by FAUSTO SWEENEY RN Also offered Prostat and Ensure, pt refused.
--- NOTE | 2017-11-26 18:05 | NUR ---
Pt noted to have eaten 90% of her food, noted she had a few sips of Ensure and she drank her Prostat after re-offering them to her Addendum: 11/26/17 at 1924 by FAUSTO SWEENEY RN Noted a skin tear on the pt left hand. Picture taken.
[2017-11-26 18:11] VITALS: BP 123/45
--- NOTE | 2017-11-26 19:10 | NUR ---
RECEIVED PT AWAKE, ALERT, ORIENTEDX3. PT SHOWS NO SIGNS OF DISTRESS. PT WANTS TO SIT UP. PT SITTED AT THE CHAIR . PT IV INTACT AND PATENT. PT WITH HENSON CATHETER. CALL LIGHT WITHIN REACH. BED ALARM ON, IN LOW POSITION,AND SIDE RAILS UPX2. WILL CONTINUE TO MONITOR.
[2017-11-26 19:26] VITALS: BP 104/44
--- NOTE | 2017-11-26 21:15 | NUR ---
SEEN BY DR. BAER FOR PSYCH CONSULT. PT STABLE WITH NO ACUTE DISTRESS. SAFETY PROVIDED. WILL CONTINUE TO MONITOR.
[2017-11-26] MEDS: CEFTRIAXONE 1 G in IV DEXTROSE 5% 50 ML IV SCH (21:21)
[2017-11-26] MEDS: ARIPIPRAZOLE 10 MG TABLET PO SCH (21:49)
[2017-11-26] MEDS: MELATONIN 3 MG TABLET PO SCH (21:49)
[2017-11-26] MEDS: DOCUSATE SODIUM 100 MG CAPSULE PO SCH (21:49)
[2017-11-26] MEDS: LACTOBACILLUS RHAMNOSUS GG 1 EACH CAPSULE PO SCH (21:50)
[2017-11-26] MEDS: CIPROFLOXACIN HCL 250 MG TABLET PO SCH (21:56)
[2017-11-27] MEDS ORDERED: VANCOMYCIN IV 1 G in PREMIXED 0 EACH IV SCH (06:00)
[2017-11-27] MEDS: PANTOPRAZOLE SODIUM 40 MG TABLET.DR PO SCH (06:15)
[2017-11-27 06:19] VITALS: BP 107/68
--- NOTE | 2017-11-27 06:20 | NUR ---
PT SLEPT THROUGHOUT THE SHIFT. PT SHOWS NO SIGNS OF DISTRESS. PT IV INTACT AND PATENT. HENSON CATHETER INTACT. PRESCRIBED MEDICATION GIVEN AND PT TOLERATED IT WELL. PT SOMETIMES REFUSING NURSING CARE. PT REFUSE HER PROTONIX. CALL LIGHT WITHIN REACH. BED ALARM ON AND IN LOW POSITION. WILL ENDORSE ACCORDINGLY TO INCOMING SHIFT NURSE.
[2017-11-27] MEDS: PROTEIN SUPPLEMENT (PROSTAT) 30 ML LIQUID PO SCH ×2 (08:00→17:23)
[2017-11-27] MEDS: ENSURE ENLIVE (VAN) 240 ML LIQUID PO SCH ×3 (08:00→17:24)
[2017-11-27] MEDS: ACETAMINOPHEN 325 MG TABLET PO PRN ×2 (08:13→20:47)
[2017-11-27] MEDS: CIPROFLOXACIN HCL 250 MG TABLET PO SCH ×2 (08:14→20:36)
[2017-11-27] MEDS: ASCORBIC ACID 500 MG TABLET PO SCH (08:14)
[2017-11-27] MEDS: LACTOBACILLUS RHAMNOSUS GG 1 EACH CAPSULE PO SCH ×2 (08:14→20:35)
[2017-11-27] MEDS: MULTIVIT, IRON, MIN NO. 8, FA TABLET PO SCH (08:14)
[2017-11-27] MEDS: risperiDONE 0.25 MG TABLET PO SCH ×2 (08:14→20:35)
[2017-11-27] MEDS: ASPIRIN 81 MG TAB.CHEW PO SCH (08:14)
[2017-11-27] MEDS: ENOXAPARIN SODIUM 40 MG/0.4 ML DISP.SYRIN SQ SCH (08:15)
[2017-11-27] MEDS: MUPIROCIN 2% OINT 22 GM TUBE TP SCH ×2 (08:16→20:36)
--- NOTE | 2017-11-27 08:30 | NUR ---
AWAKE CONFUSED NON COOPERATE NO SOB OR PAIN AT THIS TIME ON FALL AND ASPIRATION PRECAUTION BED ALARM ON AND CALL LIGHT IN REACH
[2017-11-27] MEDS: FLUTICASONE/VILANTEROL 1 EACH BLST.W.DEV IH SCH (09:00)
--- NOTE | 2017-11-27 09:00 | NUR ---
REFUSED BREAKFAST AND SOME MEDICATION CLOSED OBSERVATION RESTING
[2017-11-27] MEDS: MUPIROCIN 2% OINT 22 GM TUBE NS SCH ×2 (09:28→20:37)
--- NOTE | 2017-11-27 11:00 | NUR ---
Clinical Pharmacy Note: Vancomycin Dosing per Pharmacy Subjective: Vancomycin IV to continue on this 87 yo female patient for sepsis. Objective: BUN 14/Scr 0.9 WBC 8.4 (11/25) Temperature 97.7 ht 157 cm wt 63 kg Assessment/Plan: Continue vancomycin 1000mg IVPB Q32hr.
[2017-11-27 11:20] VITALS: BP 127/46
[2017-11-27] MEDS ORDERED: LIDOCAINE HCL 2% 5 ML JELLY MM ONE (12:30)
--- NOTE | 2017-11-27 13:00 | NUR ---
DR GEMA ARELLANO SSEN PATIENT AND DOING PROCEDURE FOR DEBRIDEMENT OF LEFT FOOT HEEL WOUND AT BEDSIDE MONICA PROCEDURE WELL DSG CHANGE BY MD THIS AFTERNOON
[2017-11-27 13:12] LABS: BASOPHILS % (AUTO) 0.3 % (0.0-2.0); EOSINOPHILS # (AUTO) 0.1 K/uL (0.0-0.7); EOSINOPHILS % (AUTO) 1.2 % (0.0-7.0); HEMATOCRIT 32.8 % (31.2-41.9); HEMOGLOBIN 11.3 g/dL (10.9-14.3); LYMPHOCYTES # (AUTO) 2.4 K/uL (20.0-40.0); LYMPHOCYTES % (AUTO) 35.8 % (20.5-51.5); MEAN CORPUSCULAR HEMOGLOBIN 31.9 uug (24.7-32.8); MEAN CORPUSCULAR HGB CONC 34 g/dL (32.3-35.6); MEAN CORPUSCULAR VOLUME 92.6 fL (75.5-95.3); MONOCYTES # (AUTO) 0.6 K/uL (2.0-10.0); MONOCYTES % (AUTO) 8.7 % (0.0-11.0); NEUTROPHILS # (AUTO) 3.6 K/uL (1.8-8.9); PLATELET COUNT (AUTO) 209 K/uL (179-408); RED BLOOD CELL COUNT(AUTO) 3.54 MIL/uL (3.63-4.92); WHITE BLOOD COUNT (AUTO) 6.7 K/uL (3.8-11.8)
[2017-11-27 14:21] LABS: ALANINE AMINOTRANSFERASE 17 U/L (14-59); ALKALINE PHOSPHATASE 59 U/L (50-136); ASPARTATE AMINOTRANSFERASE 13 U/L (15-37); BILIRUBIN,TOTAL 0.4 mg/dL (0.2-1.0); CARBON DIOXIDE 32 mmol/L (21-32); CHLORIDE 103 mmol/L (98-107); CHOLESTEROL 225 mg/dL (<200); GLUCOSE 133 mg/dL (74-106); HDL CHOLESTEROL 44 mg/dL (40-60); MAGNESIUM 1.8 mg/dL (1.8-2.4); PHOSPHOROUS 3.6 mg/dL (2.5-4.9); POTASSIUM 3.7 mmol/L (3.5-5.1); TOTAL PROTEIN, SERUM 6.1 g/dL (6.4-8.2); TRIGLYCERIDES 98 MG/DL (30-150); UREA NITROGEN, BLOOD 17 mg/dL (7-18)
[2017-11-27 14:43] LABS: THYROID STIMULATING HORMONE 2.104 mIU/mL (0.358-3.740)
[2017-11-27 15:10] VITALS: BP 116/39
[2017-11-27] MEDS: MIRTAZAPINE 15 MG TABLET PO SCH (17:23)
--- NOTE | 2017-11-27 18:00 | NUR ---
RESTING WELL IN BED NO ACUTE DISTRESS OR PAIN ON FALL /ASPIRATION PRECAUTION SAFETY MEASURE PROVIDED CALL LIGHT IN REACH AND BED ALARM ON ,COOPERATE WELL THIS EVENING
--- NOTE | 2017-11-27 19:15 | NUR ---
RECEIVED PT AWAKE, ALERT, ORIENTEDX2. PT PLEASANT WHEN APPROACHED. PT SHOWS NO SIGNS OF DISTRESS. PT HENSON CATHETER INTACT. CALL LIGHT WITHIN REACH. BED ALARM ON, LOW POSITION AND SIDE RAILS UPX2. WILL CONTINUE TO MONITOR.
[2017-11-27 19:23] VITALS: BP 130/60
[2017-11-27] MEDS: DOXYCYCLINE HYCLATE 100 MG TABLET PO SCH (20:35)
[2017-11-27] MEDS: ARIPIPRAZOLE 10 MG TABLET PO SCH (20:35)
[2017-11-27] MEDS: MELATONIN 3 MG TABLET PO SCH (20:35)
[2017-11-27] MEDS: DOCUSATE SODIUM 100 MG CAPSULE PO SCH (20:35)
--- NOTE | 2017-11-27 21:30 | NUR ---
TRIED TO HAVE IV ACCESS BUT PT REFUSED. PT AGITATED, COMBATIVE AND SWINGING HER HANDS. EXPLAIN TO HER THE ADVANTAGE AND DISADVANTAGE OF HAVING IV ACCESS BUT PT STILL REFUSE. CHARGE NURSE AWARE . WILL TRY LATER. PT STABLE AND NO ACUTE DISTRESS. WILL CONTINUE TO MONITOR.
[2017-11-28 03:33] VITALS: BP 129/49
[2017-11-28 05:00] VITALS: BP 135/55
[2017-11-28] MEDS: PANTOPRAZOLE SODIUM 40 MG TABLET.DR PO SCH (06:06)
--- NOTE | 2017-11-28 06:32 | NUR ---
PT SLEPT THROUGHOUT THE SHIFT. PT SHOWS NO SIGNS OF DISTRESS. PT REFUSED TO HAVE IV ACCESS AND DRESSING CHANGE. PT AGITATED AND CONFUSED, SWING AT THE RN. CHARGE NURSE AWARE. PRESCRIBED MEDICATION GIVEN AND PT TOLERATED IT WELL.PT REFUSED HER PROTONIX MEDICATION.SAFETY AND COMFORT PROVIDED. WILL ENDORSE ACCORDINGLY TO INCOMING NURSE FOR CONTINUITY OF CARE.
--- NOTE | 2017-11-28 08:00 | NUR ---
RESTING WELL IN BED NO ACUTE DISTRESS OR PAIN ON ASPIRATION AND FALL PRECAUTION BED ALARM ON AND CALL LIGHT IN REACH
[2017-11-28] MEDS: FLUTICASONE/VILANTEROL 1 EACH BLST.W.DEV IH SCH (09:00)
[2017-11-28] MEDS: ASPIRIN 81 MG TAB.CHEW PO SCH (09:04)
[2017-11-28] MEDS: MULTIVIT, IRON, MIN NO. 8, FA TABLET PO SCH (09:04)
[2017-11-28] MEDS: risperiDONE 0.25 MG TABLET PO SCH ×2 (09:04→20:25)
[2017-11-28] MEDS: DOXYCYCLINE HYCLATE 100 MG TABLET PO SCH ×2 (09:04→20:25)
[2017-11-28] MEDS: ASCORBIC ACID 500 MG TABLET PO SCH (09:04)
[2017-11-28] MEDS: LACTOBACILLUS RHAMNOSUS GG 1 EACH CAPSULE PO SCH ×2 (09:04→20:25)
[2017-11-28] MEDS: ACETAMINOPHEN 325 MG TABLET PO PRN (09:05)
[2017-11-28] MEDS: PROTEIN SUPPLEMENT (PROSTAT) 30 ML LIQUID PO SCH ×2 (09:05→17:00)
[2017-11-28] MEDS: ENSURE ENLIVE (VAN) 240 ML LIQUID PO SCH ×3 (09:06→17:28)
[2017-11-28] MEDS: MUPIROCIN 2% OINT 22 GM TUBE NS SCH ×2 (09:07→20:27)
[2017-11-28] MEDS: CIPROFLOXACIN HCL 250 MG TABLET PO SCH ×2 (09:09→20:25)
[2017-11-28] MEDS: ENOXAPARIN SODIUM 40 MG/0.4 ML DISP.SYRIN SQ SCH (09:10)
[2017-11-28] MEDS: MUPIROCIN 2% OINT 22 GM TUBE TP SCH ×2 (09:11→20:27)
[2017-11-28] MEDS ORDERED: LIDOCAINE 2% 30 ML JELLY MM ONE (10:45)
[2017-11-28 11:06] VITALS: BP 109/58
--- NOTE | 2017-11-28 14:00 | NUR ---
WOUND CARE DSG CHANGE DONE BY DR DUBON AFTER DEBRIDGEMENT OF LEFT HEEL WOUND THIS AFTERNOON
--- NOTE | 2017-11-28 15:00 | NUR ---
ASSIST TO BRP HAVING BM THIS AFTERNNON AND BACK TO BED RESTING
[2017-11-28 15:31] VITALS: BP 123/48
[2017-11-28] MEDS: MIRTAZAPINE 15 MG TABLET PO SCH (17:28)
--- NOTE | 2017-11-28 17:30 | NUR ---
STABLE HEMODYNAMIC STATUS STILL HAVING MOOD SWING AND AGITATION /CONFUSED /NON COOPERATE SOMETIMES BUT CALM AND COOPERATE TAKE MED THIS EVENING AND EAT DINNER WELL NO ACUTE DISTRESS SAFETY MEASURE PROVIDED CALL LIGHT IN REACH AND BED ALARM ON
[2017-11-28 19:00] VITALS: BP 148/60
--- NOTE | 2017-11-28 19:10 | NUR ---
RECEIVED PT AWAKE, ALERT,AND ORIENTEDX2. PT SHOWS NO SIGNS OF DISTRESS. PT HENSON CATHETER INTACT. PT PLEASANT WHEN APPROACH. CALL LIGHT WITHIN REACH. BED ALARM ON AND IN LOW POSITION AND SIDE RAILS UPX2. WILL CONTINUE TO MONITOR.
[2017-11-28] MEDS: ARIPIPRAZOLE 10 MG TABLET PO SCH (20:24)
[2017-11-28] MEDS: DOCUSATE SODIUM 100 MG CAPSULE PO SCH (20:25)
[2017-11-28] MEDS: MELATONIN 3 MG TABLET PO SCH (20:25)
--- NOTE | 2017-11-28 21:00 | NUR ---
PT AGITATED AND SITTING DOWN AT THE END OF THE BED.SHE REFUSED TO LIE DOWN ON HER BED.NURSE AT BEDSIDE. BED ALARM ON. SAFETY PROVIDED FOR THE PT.
[2017-11-29 04:00] VITALS: BP 136/57
--- NOTE | 2017-11-29 06:16 | NUR ---
PT SLEPT THROUGHOUT THE SHIFT. PT SHOWS NO SIGNS OF DISTRESS.PRESCRIBED MEDICATION GIVEN AND PT TOLERATED IT WELL. PT REFUSED TO HAVE IV ACCESS.HENSON CATHETER INTACT.CHANGED THE DRESSING FOR THE PT. PT KICKING WHILE DOING THE DRESSING. PT REFUSED TO TAKE HER PROTONIX. ANXIOUS WHEN WAKING HER UPAND SWINGING HER ARMS. PT GRUMPY. CALL LIGHT WITHIN REACH. BED ALARM ON. SAFETY AND COMFORT PROVIDED. WILL ENDORSE ACCORDINGLY FOR CONTINUITY OF CARE.
[2017-11-29] MEDS: PANTOPRAZOLE SODIUM 40 MG TABLET.DR PO SCH (06:25)
[2017-11-29] MEDS: PROTEIN SUPPLEMENT (PROSTAT) 30 ML LIQUID PO SCH ×2 (08:00→16:57)
[2017-11-29] MEDS: ENSURE ENLIVE (VAN) 240 ML LIQUID PO SCH ×3 (08:00→16:57)
[2017-11-29] MEDS: LACTOBACILLUS RHAMNOSUS GG 1 EACH CAPSULE PO SCH ×3 (08:47→20:08)
[2017-11-29] MEDS: ASCORBIC ACID 500 MG TABLET PO SCH ×2 (08:47→09:00)
[2017-11-29] MEDS: FLUTICASONE/VILANTEROL 1 EACH BLST.W.DEV IH SCH (08:47)
[2017-11-29] MEDS: risperiDONE 0.25 MG TABLET PO SCH ×3 (08:47→20:08)
[2017-11-29] MEDS: CIPROFLOXACIN HCL 250 MG TABLET PO SCH ×3 (08:47→20:08)
[2017-11-29] MEDS: DOXYCYCLINE HYCLATE 100 MG TABLET PO SCH ×3 (08:47→20:12)
[2017-11-29] MEDS: ASPIRIN 81 MG TAB.CHEW PO SCH ×2 (08:47→09:00)
[2017-11-29] MEDS: MULTIVIT, IRON, MIN NO. 8, FA TABLET PO SCH ×2 (08:47→09:00)
[2017-11-29] MEDS: MUPIROCIN 2% OINT 22 GM TUBE TP SCH ×2 (08:48→20:07)
[2017-11-29] MEDS: MUPIROCIN 2% OINT 22 GM TUBE NS SCH ×3 (08:48→20:07)
[2017-11-29] MEDS: ENOXAPARIN SODIUM 40 MG/0.4 ML DISP.SYRIN SQ SCH ×2 (09:00→09:02)
[2017-11-29] MEDS ORDERED: LIDOCAINE HCL 2% 5 ML JELLY MM PRN (09:00)
--- NOTE | 2017-11-29 10:15 | NUR ---
PT REFUSED ALL MORNING MEDICATIONS, PT WOULD ATTEMPT TO HIT NURSES WITH HAND AND STATING "NO, GOOD FOR ME". PT IS RESISTANT TO CARE, REFUSING TO EAT FOOD, SUSPICIOUS OF OTHERS, AOX1. CONTINUE TO MONITOR PT.
[2017-11-29 11:00] VITALS: BP 138/39
[2017-11-29 15:03] VITALS: BP 126/59
[2017-11-29] MEDS ORDERED: LIDOCAINE 2% (UROJET) 10 ML JELLY MM PRN (16:15)
[2017-11-29] MEDS ORDERED: LIDOCAINE HCL 2% 5 ML JELLY MM ONE (16:30)
[2017-11-29] MEDS: MIRTAZAPINE 15 MG TABLET PO SCH (17:28)
--- NOTE | 2017-11-29 17:29 | NUR ---
PT AOX1, NO SIGNS OF DISTRESS,PT HAS BEEN REFUSING MEDICATION AND CARE. PT SPITS OUT MEDICATION, AND STATES, "NO!". PT IS STABLE AT THIS TIME. CONTINUE TO MONITOR.
--- NOTE | 2017-11-29 18:00 | NUR ---
HARM REDUCTION WORKER CAME AND DID A DEBRIDEMENT OF THE PT'S LEFT FOOT. PT IS CALM AND COMPLIANT WITH PROCEDURE. NEW DRESSING IS APPLIED. PT SHOWS NO SIGNS OF PAIN BY USING THE FLACC SCALE. CONTINUE TO MONITOR PT.
--- NOTE | 2017-11-29 18:34 | NUR ---
PT IS RESTING IN BED WITH NO SIGNS OF RESPIRATORY DISTRESS. PT IS NOT COMPLAINT WITH MEDICATIONS AND CARE. THE PT WAS COMPLIANT WITH THE DEBRIDEMENT AND SHOWS NO SIGNS OF PAIN. PER PLATE DRILLER POSSIBLE D/C TOMORROW. CONTINUE TO MONITOR PT.
--- NOTE | 2017-11-29 19:15 | NUR ---
RECEIVED PT AWAKE AND ORIENTEDX1. PT CALM AND PLEASANT WHEN APPROACHED. PT IN NO ACUTE DISTRESS. CALL LIGHT WITHIN REACH. BED ALARM ON ,LOW POSITION AND SIDE RAILSUPX2. WILL CONTINUE TO MONITOR.
[2017-11-29] MEDS: MELATONIN 3 MG TABLET PO SCH (20:08)
[2017-11-29] MEDS: ARIPIPRAZOLE 10 MG TABLET PO SCH (20:08)
[2017-11-29] MEDS: DOCUSATE SODIUM 100 MG CAPSULE PO SCH (20:08)
[2017-11-29 20:13] VITALS: BP 161/62
--- NOTE | 2017-11-29 21:00 | NUR ---
DR. BAER SAW THE PT. PT IN NO ACUTE DISTRESS. WILL CONTINUE TO MONITOR.
[2017-11-30 04:00] VITALS: BP 128/55
--- NOTE | 2017-11-30 06:08 | NUR ---
PT SLEPT THROUGHOUT THE SHIFT. PT SHOWS NO SIGNS OF DISTRESS. PRESCRIBED MEDICATION GIVEN AND PT TOLERATED IT WELL.CALL LIGHT WITHIN REACH. HENSON CATHETER INTACT. PT REFUSED PROTONIX MEDICATION.SAFETY AND COMFORT PROVIDED. WILL ENDORSE ACCORDINGLY FOR CONTINUITY OF CARE.
[2017-11-30] MEDS: PANTOPRAZOLE SODIUM 40 MG TABLET.DR PO SCH (06:35)
[2017-11-30 06:43] LABS: BASOPHILS % (AUTO) 0.3 % (0.0-2.0); EOSINOPHILS # (AUTO) 0.1 K/uL (0.0-0.7); EOSINOPHILS % (AUTO) 1.1 % (0.0-7.0); HEMATOCRIT 34.1 % (31.2-41.9); HEMOGLOBIN 11.4 g/dL (10.9-14.3); LYMPHOCYTES # (AUTO) 2.4 K/uL (20.0-40.0); MEAN CORPUSCULAR HEMOGLOBIN 31.7 uug (24.7-32.8); MEAN CORPUSCULAR HGB CONC 34 g/dL (32.3-35.6); MEAN CORPUSCULAR VOLUME 94.4 fL (75.5-95.3); MONOCYTES # (AUTO) 0.6 K/uL (2.0-10.0); MONOCYTES % (AUTO) 7.4 % (0.0-11.0); NEUTROPHILS # (AUTO) 4.6 K/uL (1.8-8.9); NEUTROPHILS % (AUTO) 60.2 % (38.5-71.5); PLATELET COUNT (AUTO) 246 K/uL (179-408); RED BLOOD CELL COUNT(AUTO) 3.61 MIL/uL (3.63-4.92); WHITE BLOOD COUNT (AUTO) 7.7 K/uL (3.8-11.8)
[2017-11-30 07:07] LABS: ALANINE AMINOTRANSFERASE 24 U/L (14-59); ALKALINE PHOSPHATASE 74 U/L (50-136); ASPARTATE AMINOTRANSFERASE 14 U/L (15-37); BILIRUBIN,TOTAL 0.2 mg/dL (0.2-1.0); CARBON DIOXIDE 34 mmol/L (21-32); CHLORIDE 106 mmol/L (98-107); GLUCOSE 189 mg/dL (74-106); MAGNESIUM 1.7 mg/dL (1.8-2.4); PHOSPHOROUS 3.8 mg/dL (2.5-4.9); POTASSIUM 3.9 mmol/L (3.5-5.1); TOTAL PROTEIN, SERUM 6.6 g/dL (6.4-8.2); UREA NITROGEN, BLOOD 26 mg/dL (7-18)
[2017-11-30] MEDS: PROTEIN SUPPLEMENT (PROSTAT) 30 ML LIQUID PO SCH ×2 (08:00→16:13)
[2017-11-30] MEDS: ENSURE ENLIVE (VAN) 240 ML LIQUID PO SCH ×3 (08:00→16:13)
[2017-11-30] MEDS: MULTIVIT, IRON, MIN NO. 8, FA TABLET PO SCH (09:00)
[2017-11-30] MEDS: MUPIROCIN 2% OINT 22 GM TUBE TP SCH ×2 (09:00→22:23)
[2017-11-30] MEDS: ENOXAPARIN SODIUM 40 MG/0.4 ML DISP.SYRIN SQ SCH (09:00)
[2017-11-30] MEDS: DOXYCYCLINE HYCLATE 100 MG TABLET PO SCH ×2 (09:00→22:20)
[2017-11-30] MEDS: ASPIRIN 81 MG TAB.CHEW PO SCH (09:00)
[2017-11-30] MEDS: risperiDONE 1 MG/ML UDC PO SCH ×2 (09:00→22:21)
[2017-11-30] MEDS: FLUTICASONE/VILANTEROL 1 EACH BLST.W.DEV IH SCH (09:00)
[2017-11-30] MEDS: LACTOBACILLUS RHAMNOSUS GG 1 EACH CAPSULE PO SCH ×2 (09:00→22:20)
[2017-11-30] MEDS: ASCORBIC ACID 500 MG TABLET PO SCH (09:00)
--- NOTE | 2017-11-30 09:51 | NUR ---
PT REFUSES CARE AND MEDICATION. PT THROWS MEDS ON THE FLOOR AND SPITS THEM OUT. PT IS AGITATED, BUT RE-DIRECTABLE. NO SIGNS OF ACUTE DISTRESS. CONTINUE TO MONITOR PT.
[2017-11-30 11:29] VITALS: BP 120/50
[2017-11-30 16:00] VITALS: BP 116/48
[2017-11-30] MEDS: MAGNESIUM SULFATE/D5W 100 ML IV SCH ×2 (16:06→17:07)
[2017-11-30] MEDS: MIRTAZAPINE 15 MG TABLET PO SCH ×2 (17:11→17:46)
--- NOTE | 2017-11-30 18:33 | NUR ---
PT WAS VISITED BY PSYCHIATRIST BUFFY. PT AGREED TO TAKE THE REMERON. PT HAS A NEW IV ACCESS RIGHT HAND GAUGE 22. PT IN BED WITH NO SIGNS OF RESPIRATORY DISTRESS.CONTINUE TO MONITOR
[2017-11-30 20:00] VITALS: BP 147/45
[2017-11-30] MEDS: ARIPIPRAZOLE 10 MG TABLET PO SCH (22:21)
[2017-11-30] MEDS: MELATONIN 3 MG TABLET PO SCH (22:21)
[2017-11-30] MEDS: DOCUSATE SODIUM 100 MG CAPSULE PO SCH (22:21)
[2017-12-01 04:39] VITALS: BP 144/46
[2017-12-01] MEDS: PANTOPRAZOLE SODIUM 40 MG TABLET.DR PO SCH (06:26)
[2017-12-01 06:42] LABS: CARBON DIOXIDE 30 mmol/L (21-32); CHLORIDE 103 mmol/L (98-107); GLUCOSE 201 mg/dL (74-106); MAGNESIUM 2.1 mg/dL (1.8-2.4); POTASSIUM 3.8 mmol/L (3.5-5.1); UREA NITROGEN, BLOOD 23 mg/dL (7-18)
[2017-12-01] MEDS: PROTEIN SUPPLEMENT (PROSTAT) 30 ML LIQUID PO SCH ×2 (08:00→17:00)
[2017-12-01] MEDS: ENSURE ENLIVE (VAN) 240 ML LIQUID PO SCH ×3 (08:00→17:00)
--- NOTE | 2017-12-01 08:30 | NUR ---
Pt in bed awake, alert to name repositioned for comfort.
[2017-12-01] MEDS: FLUTICASONE/VILANTEROL 1 EACH BLST.W.DEV IH SCH (09:00)
[2017-12-01] MEDS: DOXYCYCLINE HYCLATE 100 MG TABLET PO SCH ×2 (09:35→20:43)
[2017-12-01] MEDS: ASCORBIC ACID 500 MG TABLET PO SCH (09:35)
[2017-12-01] MEDS: ASPIRIN 81 MG TAB.CHEW PO SCH (09:36)
[2017-12-01] MEDS: LACTOBACILLUS RHAMNOSUS GG 1 EACH CAPSULE PO SCH ×2 (09:36→20:43)
[2017-12-01] MEDS: MULTIVIT, IRON, MIN NO. 8, FA TABLET PO SCH (09:36)
[2017-12-01] MEDS: risperiDONE 1 MG/ML UDC PO SCH ×2 (09:36→20:43)
[2017-12-01] MEDS: ENOXAPARIN SODIUM 40 MG/0.4 ML DISP.SYRIN SQ SCH (09:37)
[2017-12-01] MEDS: MUPIROCIN 2% OINT 22 GM TUBE TP SCH ×2 (09:38→20:49)
[2017-12-01 11:40] VITALS: BP 115/67
--- NOTE | 2017-12-01 13:30 | NUR ---
Pt in bed awake, alert, oriented x1, repositioned for comfort, picc .line to MECHE patent, albumin 1.5 dr Lopez aware, also lab call to report culture from wound ID made aware in unit, atb will change. Addendum: 12/01/17 at 1739 by LUNA ARCHER RN tgis note was written in wrong pt.
--- NOTE | 2017-12-01 14:00 | NUR ---
Pt in bed aggressive, refused po meds and care, scrasht and hit staff, took earlier risperal liquid, repositoned for comfort.
[2017-12-01 15:29] VITALS: BP 123/51
--- NOTE | 2017-12-01 15:30 | NUR ---
Pt pulled out iv, and unable to start d/t pt is agresive, hit and kit staff, will call md if pt still need iv.
--- NOTE | 2017-12-01 17:43 | NUR ---
Dr Bernal was called to notify about iv, pt keep pulling off and pt does not have ATB nor IVF, awaiting for MD to call us back.
--- NOTE | 2017-12-01 18:29 | NUR ---
Dr Bernal called back and ok for pt to keep IV HL out, pt does not need iv, pt will be leaving tomorrow.
[2017-12-01 19:40] VITALS: BP 145/64
--- NOTE | 2017-12-01 20:00 | NUR ---
RECEIVED PATIENT AWAKE IN BED. PATIENT IS A/O X1-2. BAHAMIAN SPEAKING ONLY BUT PLEASANT WHEN APPROACHED. VSS. NO S/S OF PAIN OR DISCOMFORT. NO RESP. DISTRESS NOTED. F/C INTACT AND DRAINING CLEAR YELLOW URINE. NO HEPLOCK NOTED. MD AWARE. BED ALARM ON FOR SAFETY. CALL LIGHT IN REACH. ALL NEEDS ATTENDED. WILL CONTINUE TO MONITOR AND ASSESS.
[2017-12-01] MEDS: DOCUSATE SODIUM 100 MG CAPSULE PO SCH (20:43)
[2017-12-01] MEDS: MELATONIN 3 MG TABLET PO SCH (20:43)
[2017-12-01] MEDS ORDERED: MIRTAZAPINE 15 MG TAB.RAPDIS SL SCH (21:00)
--- NOTE | 2017-12-01 21:00 | NUR ---
PATIENT IS COOPERATIVE AND COMPLIANT WITH HS MEDS. PATIENT SITTING IN CHAIR AT BEDSIDE.
[2017-12-02 03:34] VITALS: BP 130/55
--- NOTE | 2017-12-02 05:58 | NUR ---
PATIENT ASLEEP IN BED. EASILY AROUSABLE. SLEPT WELL. BED ALARM ON. VSS. CALL LIGHT IN REACH .ALL NEEDS ATTENDED. WILL CONTINUE TO MONITOR AND ASSESS.
[2017-12-02] MEDS: PANTOPRAZOLE SODIUM 40 MG TABLET.DR PO SCH (06:06)
[2017-12-02] MEDS ORDERED: DOXY100T2 PO (08:27)
[2017-12-02] MEDS: ENOXAPARIN SODIUM 40 MG/0.4 ML DISP.SYRIN SQ SCH (08:33)
[2017-12-02] MEDS: PROTEIN SUPPLEMENT (PROSTAT) 30 ML LIQUID PO SCH (08:34)
[2017-12-02] MEDS: MULTIVIT, IRON, MIN NO. 8, FA TABLET PO SCH (08:36)
[2017-12-02] MEDS: DOXYCYCLINE HYCLATE 100 MG TABLET PO SCH (08:37)
[2017-12-02] MEDS: ASPIRIN 81 MG TAB.CHEW PO SCH (08:37)
[2017-12-02] MEDS: LACTOBACILLUS RHAMNOSUS GG 1 EACH CAPSULE PO SCH (08:37)
[2017-12-02] MEDS: ASCORBIC ACID 500 MG TABLET PO SCH (08:37)
[2017-12-02] MEDS: FLUTICASONE/VILANTEROL 1 EACH BLST.W.DEV IH SCH (08:39)
[2017-12-02] MEDS: MUPIROCIN 2% OINT 22 GM TUBE TP SCH (08:40)
[2017-12-02] MEDS: ENSURE ENLIVE (VAN) 240 ML LIQUID PO SCH ×2 (08:49→12:00)
[2017-12-02] MEDS: risperiDONE 1 MG/ML UDC PO SCH (08:49)
[2017-12-02 11:13] VITALS: BP 144/55
--- NOTE | 2017-12-02 12:00 | NUR ---
PATIENT DISCHARGED TO [facility]. HENSON CATH REMOVED PER MD'S ORDER. PT TOLERATED PROCEDURE WELL, NO C/O OF DISCOMFORT OR PAIN. WILL MONITOR FOR URINARY OUTPUT.
--- NOTE | 2017-12-02 15:00 | NUR ---
WOUND TREATMENT INSTRUCTION PROVIDED TO CARLENE MARTINEZ [place]. PICTURES OF LEFT HEEL TAKEN AND PLACED IN PATIENT'S CHART.
[2017-12-02 15:01] VITALS: BP 140/65
--- NOTE | 2017-12-02 16:27 | NUR ---
PATIENT LEFT THE UNIT, ALERT, IN NO DISTRESS. PICKED UP BY AMBULANCE. REPORT GIVEN TO CARLENE MARTINEZ FROM [facility].
[2017-12-03] MEDS ORDERED: MULTIVIT, IRON, MIN NO. 8, FA TABLET PO SCH (11:00)
== END 2017-12-02 16:30 | DRG 871 ==
LOC: ER 15:49 → MED 17:24 → TELE 17:30 → MED 11-24 18:03
PROVIDERS: ADMIT Internal Medicine; ATTEND Internal Medicine
PROC: 0HBNXZZ Excision of Left Foot Skin, External Approach (ICD-10-PCS; 2017-11-24)
PROC: 0HBNXZZ Excision of Left Foot Skin, External Approach (ICD-10-PCS; principal; 2017-11-27)
DX: A41.9 Sepsis, unspecified organism (principal); L89.023 Pressure ulcer of left elbow, stage 3; G92 Toxic encephalopathy; I50.33 Acute on chronic diastolic (congestive) heart failure; E43 Unspecified severe protein-calorie malnutrition; L03.116 Cellulitis of left lower limb; E87.2 Acidosis; D68.59 Other primary thrombophilia; F32.3 Major depressive disorder, single episode, severe with psychotic features; N39.0 Urinary tract infection, site not specified; Z87.891 Personal history of nicotine dependence; G30.9 Alzheimer's disease, unspecified; F02.80 Dementia in other diseases classified elsewhere, unspecified severity, without behavioral disturbance, psychotic disturbance, mood disturbance, and anxiety; E78.5 Hyperlipidemia, unspecified; I11.0 Hypertensive heart disease with heart failure; Z74.09 Other reduced mobility; Z86.718 Personal history of other venous thrombosis and embolism; Z79.82 Long term (current) use of aspirin; Z22.322 Carrier or suspected carrier of Methicillin resistant Staphylococcus aureus; M19.90 Unspecified osteoarthritis, unspecified site; M81.0 Age-related osteoporosis without current pathological fracture; J44.9 Chronic obstructive pulmonary disease, unspecified; I35.0 Nonrheumatic aortic (valve) stenosis; Z68.25 Body mass index [BMI] 25.0-25.9, adult; L89.620 Pressure ulcer of left heel, unstageable; E11.65 Type 2 diabetes mellitus with hyperglycemia; Z79.4 Long term (current) use of insulin; Z86.59 Personal history of other mental and behavioral disorders; Z87.19 Personal history of other diseases of the digestive system; B96.20 Unspecified Escherichia coli [E. coli] as the cause of diseases classified elsewhere; I70.0 Atherosclerosis of aorta; Z79.899 Other long term (current) drug therapy
CPT/HCPCS: 36415; 70030-TC; 71045; 83605; 83735; 84100; 84443; 85025; 85730; 87040; 87070; 87077; 87086; 93005; 93307; 97116; 97530; A4663; J0696; J1650; J1815; J2060; J2543; J3370; J3475; J7050; J7060

== ENCOUNTER 2018-01-03 12:35 | Inpatient (IN) | payer MEDICARE, MEDICAID ==
[~2018-01-03] VITALS: Ht 152.4 cm; Wt 59.0 kg
[~2018-01-03 12:35] MED LIST changes: -ALBU1.257 NEB; -AMIN30LI2 PO; +AMIN30LI27 PO; -CLOT30CR24 TOP; +DOXY100T2 PO; +INSU100V7 SQ; +MAGN400T6 PO; +MELA3TAB PO; +MULT-213 PO; -NUT.237L70 PO; +NUT.237L71 PO; -OMEP20CA10 PO; -ONDA4TAB10 PO
--- NOTE | 2018-01-03 13:00 | NUR ---
Report received from ambulance.Patient remains awake,alert with periods of confusion.denies pain,discomfort.Pt connected to a monitor.Seen,examined by .
[2018-01-03 13:11] LABS: CARBON DIOXIDE 28 mmol/L (21-32); CHLORIDE 101 mmol/L (98-107); CREATININE 1.2 mg/dL (0.6-1.3); UREA NITROGEN, BLOOD 19 mg/dL (7-18)
[2018-01-03 13:13] LABS: GLUCOSE 310 mg/dL (74-106)
[2018-01-03 13:16] LABS: ALANINE AMINOTRANSFERASE 10 U/L (14-59); ALKALINE PHOSPHATASE 60 U/L (50-136); ASPARTATE AMINOTRANSFERASE 10 U/L (15-37); BASOPHILS % (AUTO) 0.2 % (0.0-2.0); BILIRUBIN,DIRECT 0.1 mg/dL (0.0-0.2); BILIRUBIN,TOTAL 0.4 mg/dL (0.2-1.0); EOSINOPHILS # (AUTO) 0.1 K/uL (0.0-0.7); EOSINOPHILS % (AUTO) 0.8 % (0.0-7.0); HEMATOCRIT 31.1 % (31.2-41.9); HEMOGLOBIN 10.8 g/dL (10.9-14.3); LYMPHOCYTES # (AUTO) 1.1 K/uL (20.0-40.0); LYMPHOCYTES % (AUTO) 9.9 % (20.5-51.5); MEAN CORPUSCULAR HEMOGLOBIN 32.2 uug (24.7-32.8); MEAN CORPUSCULAR HGB CONC 35 g/dL (32.3-35.6); MEAN CORPUSCULAR VOLUME 92.6 fL (75.5-95.3); MONOCYTES # (AUTO) 0.8 K/uL (2.0-10.0); MONOCYTES % (AUTO) 7.7 % (0.0-11.0); NEUTROPHILS # (AUTO) 8.7 K/uL (1.8-8.9); NEUTROPHILS % (AUTO) 81.4 % (38.5-71.5); PLATELET COUNT (AUTO) 207 K/uL (179-408); RED BLOOD CELL COUNT(AUTO) 3.36 MIL/uL (3.63-4.92); TOTAL PROTEIN, SERUM 6.9 g/dL (6.4-8.2); WHITE BLOOD COUNT (AUTO) 10.7 K/uL (3.8-11.8)
[2018-01-03 14:08] LABS: *BILIRUBIN,URIN NEGATIVE (NEGATIVE); *BLOOD, URINE 1+ (NEGATIVE); *CLARITY,URINE CLOUDY (CLEAR); *COLOR,URINE LIGHT YELLOW (YELLOW); *KETONES,URINE NEGATIVE (NEGATIVE); *PROTEIN,URINE 2+ (NEGATIVE); *UROBILINOGEN,URINE 0.2 E.U./dl (NORMAL); LEUKOCYTE ESTERASE ,URINE 3+ (NEGATIVE); NITRITE, URINE NEGATIVE (NEGATIVE); UGLUCOSE TRACE (NEGATIVE)
[2018-01-03 14:11] LABS: BACTERIA,URINE FEW /HPF (NONE SEEN); SQUAMOUS EPITHELIAL CELL,UR FEW /HPF (NONE SEEN); WBC,URINE TNTC /HPF (0-3)
[2018-01-03] MEDS ORDERED: VANCOMYCIN IV 1,000 MG in IV DEXTROSE 5% 250 ML IV ONE (14:15)
[2018-01-03] MEDS ORDERED: VANCOMYCIN IV 200 ML ONE (14:22)
[2018-01-03] MEDS ORDERED: CEFTRIAXONE 1 G VIAL ONE (14:27)
[2018-01-03] MEDS ORDERED: CEFTRIAXONE 2 G in IV DEXTROSE 5% 100 ML IV ONE (14:30)
--- NOTE | 2018-01-03 15:05 | NUR ---
report given to CARLENE Johnson.
--- NOTE | 2018-01-03 15:14 | NUR ---
Patient transferred onto med-surg floor at this time through [facility] in stable condition, vital signs stable. no signs of distress. a/ox1. alert to name only. id-band placed. patient changed and appears comfortably in bed. wounds noted on left buttocks partial thickness loss; left heel (appears like necrotic skin); and non-blanchable redness in right heel. bed in locked/low position, side rails up x2, bed alarm on, call light within reach of patient. bed rest at this time. PT consult, wound care consult will be placed. safety measures implemented.
[2018-01-03 15:43] VITALS: BP 102/46
[2018-01-03] MEDS ORDERED: HYDROCODONE/APAP 5-325MG TABLET PO PRN (15:45)
[2018-01-03] MEDS ORDERED: ONDANSETRON 4 MG/2 ML VIAL IV PRN (15:45)
[2018-01-03] MEDS ORDERED: Z GUARD REMEDY PASTE 57 GM TUBE TOP PRN (15:45)
[2018-01-03] MEDS ORDERED: ACETAMINOPHEN 325 MG TABLET PO PRN (15:45)
[2018-01-03] MEDS ORDERED: PIPERACILLIN SODIUM/TAZOBACTAM 4.5 G in IV DEXTROSE 5% 50 ML IV SCH (15:45)
[2018-01-03] MEDS ORDERED: MAGNESIUM HYDROXIDE 30 ML LIQUID UDC PO PRN (15:45)
--- NOTE | 2018-01-03 16:42 | NUR ---
CLINICAL PHARMACY NOTE Request for vancomycin dosing on 87 y/o female 4'11" 130lbs for left heel cellulitis Temp 98.6 BUN 19 Scr 1.2 WBC 10.7 also on Zosyn. Received vancomycin 1gm in ER at 1416 Will dose by levels due to decrease renal function. Random Vancomycin level ordered for 01/04 at 1300. Will continue to monitor
[2018-01-03] MEDS: PIPERACILLIN/TAZOBACTAM/D5W 2.25 G in PREMIXED 1 EACH IV SCH ×2 (17:28→22:38)
[2018-01-03 17:29] VITALS: BP 119/62
[2018-01-03] MEDS: CARVEDILOL 6.25 MG TABLET PO SCH (17:30)
[2018-01-03] MEDS: MAGNESIUM OXIDE 400 MG TABLET PO SCH (17:30)
[2018-01-03] MEDS: MIRTAZAPINE 15 MG TABLET PO SCH (17:31)
[2018-01-03] MEDS: IV NS 1000 ML 1,000 ML IV PRN (18:42)
--- NOTE | 2018-01-03 18:49 | NUR ---
patient resting in bed. no signs of distress. stable condition. PT eval, wound care consult placed. mepilex placed on left buttocks, right and left heels. Left and right heels off loaded. IVF running. ABX administered. bed alarm on, call light within reach.
--- NOTE | 2018-01-03 19:20 | NUR ---
RECEIVED PT ASLEEP ON BED. PT SHOWS NO SIGNS OF DISTRESS. PT IV INTACT AND PATENT. CALL LIGHT WITHIN REACH. SAFETY AND COMFORT PROVIDED . WILL CONTINUE TO MONITOR.
[2018-01-03 19:53] VITALS: BP 99/44
--- NOTE | 2018-01-03 20:30 | NUR ---
DOCTOR AUDRA AMBROSE ASSESSED THE PT . PT COMBATIVE AND CONFUSED. ORDERED TO TRY TO GET WOUND CULTURE FIRST. IF NOT POSSIBLE WOUND NURSE WILL GET THE CULTURE AND EVALUATE THE PT. PT STABLE. SAFETY PROVIDED. WILL CONTINUE TO MONITOR.
[2018-01-03] MEDS: DOCUSATE SODIUM 100 MG CAPSULE PO SCH (21:00)
[2018-01-03] MEDS ORDERED: INSULIN GLARGINE,HUM 300 UNITS/3 ML CARTRIDGE SQ SCH (21:00)
[2018-01-03] MEDS: MELATONIN 3 MG TABLET PO SCH (21:00)
[2018-01-03] MEDS: QUETIAPINE FUMARATE 25 MG TABLET PO SCH (21:00)
[2018-01-03] MEDS: ARIPIPRAZOLE 10 MG TABLET PO SCH (21:00)
--- NOTE | 2018-01-03 21:00 | NUR ---
WOUND CULTURE SENT TO LAB. TRYING TO GIVE MEDICATION FOR THE PT. PT SPIT THE MEDICATION. PT BECOME COMBATIVE . UNABLE TO GIVE THE MEDICATION. CHARGE NURSE AWARE . DOCTOR ARNOL AWARE OF THE PT COMBATIVE BEHAVIOR. PT STABLE. SAFETY PROVIDED TO THE PT. WILL CONTINUE TO MONITOR.
--- NOTE | 2018-01-03 21:01 | NUR ---
WASTE MEDICATIONS THAT WAS REFUSED BY THE PT IN THE [facility] WITH VALENTIN Kenny WITNESS. CHARGE NURSE AWARE. PT STABLE. WILL CONTINUE TO MONITOR.
[2018-01-04] MEDS: PIPERACILLIN/TAZOBACTAM/D5W 2.25 G in PREMIXED 1 EACH IV SCH ×4 (03:58→22:18)
[2018-01-04] MEDS: LORAZEPAM 2 MG/1 ML VIAL IV PRN (04:24)
--- NOTE | 2018-01-04 04:24 | NUR ---
PT RESTLESS AND AGITATED. PT GIVEN ATIVAN 1 MG PRESCRIBED BY DOCTOR. PT STABLE. VITAL SIGNS WITHIN NORMAL LIMIT. WILL CONTINUE TO MONITOR.
[2018-01-04 05:53] LABS: BASOPHILS % (AUTO) 0.2 % (0.0-2.0); EOSINOPHILS # (AUTO) 0.1 K/uL (0.0-0.7); EOSINOPHILS % (AUTO) 1.6 % (0.0-7.0); HEMATOCRIT 29.5 % (31.2-41.9); HEMOGLOBIN 10.2 g/dL (10.9-14.3); LYMPHOCYTES # (AUTO) 1.5 K/uL (20.0-40.0); LYMPHOCYTES % (AUTO) 21.5 % (20.5-51.5); MEAN CORPUSCULAR HEMOGLOBIN 32.2 uug (24.7-32.8); MEAN CORPUSCULAR HGB CONC 35 g/dL (32.3-35.6); MEAN CORPUSCULAR VOLUME 92.6 fL (75.5-95.3); MONOCYTES # (AUTO) 0.8 K/uL (2.0-10.0); MONOCYTES % (AUTO) 11.7 % (0.0-11.0); NEUTROPHILS # (AUTO) 4.6 K/uL (1.8-8.9); PLATELET COUNT (AUTO) 181 K/uL (179-408); RED BLOOD CELL COUNT(AUTO) 3.18 MIL/uL (3.63-4.92)
--- NOTE | 2018-01-04 06:12 | NUR ---
PT SLEPT INTERMITTENTLY. PT SHOWS NO SIGNS OF DISTRESS. PT VITAL SIGNS WITHIN NORMAL LIMIT. PT IV INTACT AND PATENT. PRESCRIBED MEDICATION GIVEN AND PT TOLERATED IT WELL. SAFETY AND COMFORT PROVIDED. ALL NEEDS ARE MET. WILL ENDORSE ACCORDINGLY TO INCOMING NURSE FOR CONTINUITY OF CARE.
[2018-01-04 06:18] LABS: CARBON DIOXIDE 26 mmol/L (21-32); CHLORIDE 107 mmol/L (98-107); CHOLESTEROL 158 mg/dL (<200); CREATININE 1.2 mg/dL (0.6-1.3); HDL CHOLESTEROL 45 mg/dL (40-60); PHOSPHOROUS 3.3 mg/dL (2.5-4.9); TRIGLYCERIDES 72 MG/DL (30-150)
[2018-01-04 06:41] LABS: UREA NITROGEN, BLOOD 22 mg/dL (7-18)
[2018-01-04 06:47] LABS: GLUCOSE 359 mg/dL (74-106)
--- NOTE | 2018-01-04 06:55 | NUR ---
GOT A CRITICAL VALUE FOR 359 BLOOD GLUCOSE . CHARGE NURSE AWARE. INCOMING NURSE AWARE OF THE CRITICAL VALUE. PT STABLE WITH NO ACUTE DISTRESS.SAFETY AND COMFORT PROVIDED.
[2018-01-04] MEDS ORDERED: DEXTROSE 50% 50 ML DISP.SYRIN IV PRN ×2 (07:00→11:00)
--- NOTE | 2018-01-04 07:10 | NUR ---
Received patient in bed, asleep, in no acute distress. No s/s of discomfort noted. IV fluids running at 75cc/hr. Patient noted with BG level of 359, no s/s of hyperglycemia noted. Novolog insulin will be given per SS. Call placed to MD and made him aware. Will continue to monitor.
[2018-01-04] MEDS: INSULIN REGULAR, HUMAN 300 UNIT/3 ML VIAL SQ PRN ×3 (08:17→17:34)
[2018-01-04] MEDS: CARVEDILOL 6.25 MG TABLET PO SCH ×2 (08:32→17:33)
[2018-01-04] MEDS: BLOOD SUGAR DIAGNOSTIC 1 EACH STRIP VI SCH ×8 (08:33→22:46)
[2018-01-04] MEDS: ASPIRIN 81 MG TAB.CHEW PO SCH (08:33)
[2018-01-04] MEDS: MAGNESIUM OXIDE 400 MG TABLET PO SCH ×2 (08:33→17:33)
[2018-01-04] MEDS: ASCORBIC ACID 500 MG TABLET PO SCH (08:33)
[2018-01-04] MEDS: FLUTICASONE/VILANTEROL 1 EACH BLST.W.DEV IH SCH (08:38)
[2018-01-04] MEDS: IV NS 1000 ML 1,000 ML IV PRN (08:44)
[2018-01-04] MEDS ORDERED: INSULIN REGULAR, HUMAN 300 UNIT/3 ML VIAL SQ PRN (11:00)
[2018-01-04 11:30] VITALS: BP 95/40
[2018-01-04] MEDS ORDERED: BLOOD SUGAR DIAGNOSTIC 1 EACH STRIP VI SCH (11:30)
--- NOTE | 2018-01-04 13:16 | NUR ---
WOUND CARE CONSULT: PT PRESENTS WITH RED RAISED AREA WITH WOUND TO LEFT BUTTOCK, LEFT HEEL ESCHAR, RT HEEL BLANCHABLE REDNESS WITH FRAGILE SKIN AND BLANCHABLE BONY SACRAL AREA, PRESENT ON ADMISSION. RECOMMEND SURGICAL AND DPM CONSULTS. ALL SKIN PROTECTION AND WOUND CARE RECOMMENDATIONS DISCUSSED WITH NURSING STAFF. WILL SEE PRN. JACOBO IN AGREEMENT WITH PLAN OF CARE. Addendum: 01/04/18 at 1322 by COLUMBA COREA RN Amended: Links added.
--- NOTE | 2018-01-04 13:42 | NUR ---
Clinical Pharmacy Note: Vancomycin Dosing per Pharmacy Subjective: Vancomycin IV to continue on this 87 yo female patient for left heel cellulitis. Objective: BUN 22/Scr 1.2 WBC 7.0 Temperature 97.6 Vanco random level: 7.2 (patient received a dose of 1gm on 01/03 at 1400) Assessment/Plan: Due to advanced age, will dose by fall off level. Since vanco random is sub-therapeutic, will give vanco 1gm IVPB x1 today at 1400. Will review Srcr in am & decide when to order next random level for further dosing.Will follow
[2018-01-04] MEDS ORDERED: VANCOMYCIN IV 1 G in PREMIXED 0 EACH IV ONE (14:00)
[2018-01-04 15:46] VITALS: BP 115/50
[2018-01-04] MEDS: MIRTAZAPINE 15 MG TABLET PO SCH (17:33)
[2018-01-04 19:00] VITALS: BP 134/48
--- NOTE | 2018-01-04 19:20 | NUR ---
Received patient lying in bed. Asleep, arouse to tactile stimuli. In no acute distress. IV site on left wrist intact and patent. IVF infusing. Safety measure initiated and call christian within reach.
[2018-01-04] MEDS: DOCUSATE SODIUM 100 MG CAPSULE PO SCH (20:52)
[2018-01-04] MEDS: LACTOBACILLUS RHAMNOSUS GG 1 EACH CAPSULE PO SCH (20:52)
[2018-01-04] MEDS: QUETIAPINE FUMARATE 25 MG TABLET PO SCH (20:52)
[2018-01-04] MEDS: MELATONIN 3 MG TABLET PO SCH (20:52)
[2018-01-04] MEDS: ARIPIPRAZOLE 10 MG TABLET PO SCH (20:52)
[2018-01-04] MEDS ORDERED: INSULIN GLARGINE,HUM 300 UNITS/3 ML CARTRIDGE SQ SCH (21:00)
--- NOTE | 2018-01-04 23:06 | NUR ---
@2122 Patient BS was 71, Informed Doctor Dominique and order to hold Lantus for now and recheck BS in an hour. @2222 - Blood sugar recheck and was 53mg/dl. Dextrose given for low BS as ordered. Notified Doctor Makenzie and will recheck BS afetr 15 minutes. @ 2244 - Doctor Dominique with order to DC Lantus. Recheck Blood sugar and was 228. Informed Doctor Fox and stated to go ahead and discontinue Lantus per order and no action needed for BS 228. All order verified and carried out.
[2018-01-05] MEDS: IV NS 1000 ML 1,000 ML IV PRN ×2 (01:56→15:20)
[2018-01-05] MEDS: PIPERACILLIN/TAZOBACTAM/D5W 2.25 G in PREMIXED 1 EACH IV SCH ×3 (03:30→15:20)
[2018-01-05 04:00] VITALS: BP 121/56
--- NOTE | 2018-01-05 06:07 | NUR ---
Patient slept well the whole night. Arouse to tactile stimuli. In no acute distress. IV site on left wrist intact and patent. IVF infusing. No adverse reaction from IV ABX. Needs anticipated to and met. Safety measure maintained and call christian within reach.
[2018-01-05] MEDS: BLOOD SUGAR DIAGNOSTIC 1 EACH STRIP VI SCH ×7 (06:30→22:09)
[2018-01-05 06:46] LABS: BASOPHILS % (AUTO) 0.3 % (0.0-2.0); EOSINOPHILS # (AUTO) 0.1 K/uL (0.0-0.7); EOSINOPHILS % (AUTO) 1.1 % (0.0-7.0); HEMATOCRIT 33.6 % (31.2-41.9); HEMOGLOBIN 11.5 g/dL (10.9-14.3); LYMPHOCYTES # (AUTO) 1.7 K/uL (20.0-40.0); MEAN CORPUSCULAR HGB CONC 34 g/dL (32.3-35.6); MEAN CORPUSCULAR VOLUME 93.4 fL (75.5-95.3); MONOCYTES # (AUTO) 0.6 K/uL (2.0-10.0); MONOCYTES % (AUTO) 6.9 % (0.0-11.0); NEUTROPHILS # (AUTO) 6.6 K/uL (1.8-8.9); NEUTROPHILS % (AUTO) 72.7 % (38.5-71.5); PLATELET COUNT (AUTO) 220 K/uL (179-408); RED BLOOD CELL COUNT(AUTO) 3.59 MIL/uL (3.63-4.92); WHITE BLOOD COUNT (AUTO) 9.1 K/uL (3.8-11.8)
--- NOTE | 2018-01-05 07:10 | NUR ---
Received patient in bed, asleep, in no acute distress. Breathing even and unlabored. Iv site on R wrist intact, IV fluids NS at 75cc/hr. No s/s of hypoglycemia noted. Bed alarm on. Safety precaution in place. Will continue to monitor
[2018-01-05 07:28] LABS: ALANINE AMINOTRANSFERASE 9 U/L (14-59); ALKALINE PHOSPHATASE 57 U/L (50-136); ASPARTATE AMINOTRANSFERASE 9 U/L (15-37); BILIRUBIN,TOTAL 0.4 mg/dL (0.2-1.0); CARBON DIOXIDE 26 mmol/L (21-32); CHLORIDE 104 mmol/L (98-107); CREATININE 1.2 mg/dL (0.6-1.3); GLUCOSE 219 mg/dL (74-106); MAGNESIUM 1.8 mg/dL (1.8-2.4); PHOSPHOROUS 3.6 mg/dL (2.5-4.9); POTASSIUM 4.2 mmol/L (3.5-5.1); TOTAL PROTEIN, SERUM 6.9 g/dL (6.4-8.2); UREA NITROGEN, BLOOD 15 mg/dL (7-18)
[2018-01-05] MEDS: ASCORBIC ACID 500 MG TABLET PO SCH (08:35)
[2018-01-05] MEDS: CARVEDILOL 6.25 MG TABLET PO SCH ×2 (08:35→17:16)
[2018-01-05] MEDS: MAGNESIUM OXIDE 400 MG TABLET PO SCH ×2 (08:35→17:16)
[2018-01-05] MEDS: LACTOBACILLUS RHAMNOSUS GG 1 EACH CAPSULE PO SCH ×2 (08:35→21:09)
[2018-01-05] MEDS: CADEXOMER IODINE 40 GM TUBE TOP SCH (08:35)
[2018-01-05] MEDS: FLUTICASONE/VILANTEROL 1 EACH BLST.W.DEV IH SCH (08:35)
[2018-01-05] MEDS: ZINC SULFATE 220 MG CAPSULE PO SCH (08:35)
[2018-01-05] MEDS: ASPIRIN 81 MG TAB.CHEW PO SCH (08:35)
[2018-01-05] MEDS: INSULIN REGULAR, HUMAN 300 UNIT/3 ML VIAL SQ PRN ×3 (08:37→17:12)
--- NOTE | 2018-01-05 09:30 | NUR ---
Dr. Fernandes here to see patient, plan for I&D this evening.
[2018-01-05 11:16] VITALS: BP 117/40
[2018-01-05 15:12] VITALS: BP 144/44
--- NOTE | 2018-01-05 15:13 | NUR ---
Clinical Pharmacy Note: Vancomycin Dosing per Pharmacy Subjective: Vancomycin IV to continue on this 87 yo female patient for left heel cellulitis. Objective: BUN 15/Scr 1.2 WBC 9.1 Temperature 97.8 Vanco random level: 12.9 Assessment/Plan: Due to advanced age, will dose by fall off level. Since vanco random is 12.9 mcg/ml, will give vanco 1gm IVPB x1 today at 1530. Will review Srcr in am & decide when to order next random level for further dosing.Will follow
[2018-01-05] MEDS ORDERED: VANCOMYCIN IV 1 G in PREMIXED 0 EACH IV ONE (15:30)
[2018-01-05] MEDS ORDERED: LIDOCAINE 1%-EPI 1:100,000 20 ML VIAL TP ONE (16:15)
[2018-01-05] MEDS: LORAZEPAM 2 MG/1 ML VIAL IV PRN (16:40)
[2018-01-05] MEDS: MIRTAZAPINE 15 MG TABLET PO SCH (17:16)
--- NOTE | 2018-01-05 17:30 | NUR ---
dr. Chapin here to see patient, plan for stage debridement of left heel dry scab tomorrow. Attempted to obtain consent for procedure from Sharon Alva (niece), unable to leave message at this time. Will endorse to oncoming shift.
--- NOTE | 2018-01-05 18:04 | NUR ---
End of shift note: No acute change of condition noted. Turned and repositioned every 2 hours. Continues on IV fluids, NS at 75cc/hr. No s/s of hypoglycemia noted. All needs attended and met. Will continue to monitor
[2018-01-05 19:23] VITALS: BP 140/93
--- NOTE | 2018-01-05 20:55 | NUR ---
Consent obtained from Rose Bennett via telephone, signed and witness by lance Basurto RN.
[2018-01-05] MEDS ORDERED: SULFAMETH/TRIMETH 800/160 MG TABLET PO SCH (21:00)
[2018-01-05] MEDS: MELATONIN 3 MG TABLET PO SCH (21:09)
[2018-01-05] MEDS: ARIPIPRAZOLE 10 MG TABLET PO SCH (21:09)
[2018-01-05] MEDS: QUETIAPINE FUMARATE 25 MG TABLET PO SCH (21:10)
[2018-01-05] MEDS: DOCUSATE SODIUM 100 MG CAPSULE PO SCH (21:10)
--- NOTE | 2018-01-05 22:00 | NUR ---
Initial blood glucose was 53, Given Kaufman juice and per protocol. Pt is alert, able to swallow, conversational. rechecked after 15 mins was BG 57, then rechecked again result was 88. Continued to monitor.
[2018-01-06 03:31] VITALS: BP 138/53
--- NOTE | 2018-01-06 05:00 | NUR ---
Wound care done to L buttocks as ordered.
[2018-01-06] MEDS: IV NS 1000 ML 1,000 ML IV PRN ×2 (05:31→22:49)
--- NOTE | 2018-01-06 06:50 | NUR ---
Pt resting in bed at this time. No acute signs of distress noted.
--- NOTE | 2018-01-06 07:00 | NUR ---
Received pt sleeping in bed with no immediate s/sx of pain, distress, or discomfort. Bed at lowest position for safety and call light within reach for assistance
[2018-01-06] MEDS: FLUTICASONE/VILANTEROL 1 EACH BLST.W.DEV IH SCH (09:00)
[2018-01-06] MEDS: BLOOD SUGAR DIAGNOSTIC 1 EACH STRIP VI SCH ×4 (09:03→21:09)
[2018-01-06] MEDS: CADEXOMER IODINE 40 GM TUBE TOP SCH (09:04)
[2018-01-06] MEDS: INSULIN REGULAR, HUMAN 300 UNIT/3 ML VIAL SQ PRN ×4 (09:07→21:10)
[2018-01-06] MEDS: CARVEDILOL 6.25 MG TABLET PO SCH ×2 (09:10→17:31)
[2018-01-06] MEDS: SULFAMETH/TRIMETH 800/160 MG TABLET PO SCH (09:21)
[2018-01-06] MEDS: MAGNESIUM OXIDE 400 MG TABLET PO SCH ×2 (09:28→17:25)
[2018-01-06] MEDS: ASCORBIC ACID 500 MG TABLET PO SCH (09:28)
[2018-01-06] MEDS: ZINC SULFATE 220 MG CAPSULE PO SCH (09:28)
[2018-01-06] MEDS: LACTOBACILLUS RHAMNOSUS GG 1 EACH CAPSULE PO SCH ×2 (09:28→21:11)
[2018-01-06] MEDS: ASPIRIN 81 MG TAB.CHEW PO SCH (09:28)
[2018-01-06 11:40] VITALS: BP 113/45
--- NOTE | 2018-01-06 12:11 | NUR ---
IV hydration paused at this time. Noted peripheral IV line leaking. Pt is refusing to have the IV line removed and start a new peripheral IV line
--- NOTE | 2018-01-06 14:04 | NUR ---
New peripheral Iv started by RN and charge nurse, 22 g on the RFA, intact and flushing well
[2018-01-06 15:49] VITALS: BP 109/60
[2018-01-06] MEDS: MIRTAZAPINE 15 MG TABLET PO SCH (18:08)
--- NOTE | 2018-01-06 18:59 | NUR ---
Pt has been semi-compliant with meds and nursing care. Pt is noted to be self motivating in feeding herself. Pt is noted with tachypnea RR greater than 26. No immediate s/sx of SOB, pain, distress or discomfort. Bed at lowest position for safety and call light within reach for assistance
[2018-01-06 20:00] VITALS: BP 139/64
--- NOTE | 2018-01-06 20:00 | NUR ---
Pt noted to be resting at this time, easily arousable via verbal and tactile stimuli. No s/s of acute distress. All needs attended to. Safe environment implemented.
[2018-01-06] MEDS: DOCUSATE SODIUM 100 MG CAPSULE PO SCH (21:09)
[2018-01-06] MEDS: ARIPIPRAZOLE 10 MG TABLET PO SCH (21:11)
[2018-01-06] MEDS: MELATONIN 3 MG TABLET PO SCH (21:11)
[2018-01-06] MEDS: QUETIAPINE FUMARATE 25 MG TABLET PO SCH (21:11)
[2018-01-07 04:00] VITALS: BP 146/74
[2018-01-07] MEDS: LORAZEPAM 2 MG/1 ML VIAL IV PRN (05:15)
--- NOTE | 2018-01-07 06:13 | NUR ---
Pt combative and agitated with morning care. Ativan IV administered as ordered. No s/s of distress noted at this time. Pt kept clean, wound care done. Safe environment implemented.
[2018-01-07] MEDS: BLOOD SUGAR DIAGNOSTIC 1 EACH STRIP VI SCH ×4 (06:37→21:50)
[2018-01-07] MEDS: ASPIRIN 81 MG TAB.CHEW PO SCH (08:19)
[2018-01-07] MEDS: ZINC SULFATE 220 MG CAPSULE PO SCH ×2 (08:20→09:00)
[2018-01-07] MEDS: SULFAMETH/TRIMETH 800/160 MG TABLET PO SCH (08:20)
[2018-01-07] MEDS: ASCORBIC ACID 500 MG TABLET PO SCH ×2 (08:20→09:00)
[2018-01-07] MEDS: MAGNESIUM OXIDE 400 MG TABLET PO SCH ×3 (08:20→17:23)
[2018-01-07] MEDS: LACTOBACILLUS RHAMNOSUS GG 1 EACH CAPSULE PO SCH ×3 (08:20→23:07)
[2018-01-07] MEDS: FLUTICASONE/VILANTEROL 1 EACH BLST.W.DEV IH SCH (08:21)
[2018-01-07] MEDS: CARVEDILOL 6.25 MG TABLET PO SCH ×2 (08:21→17:23)
[2018-01-07] MEDS: CADEXOMER IODINE 40 GM TUBE TOP SCH (08:31)
[2018-01-07] MEDS: INSULIN REGULAR, HUMAN 300 UNIT/3 ML VIAL SQ PRN ×3 (08:35→23:36)
[2018-01-07 11:12] VITALS: BP 147/55
--- NOTE | 2018-01-07 11:15 | NUR ---
BLOOD SUGAR 174. PT LETHARGIC AND NOT EATING AT THIS TIME. INSULIN HELD. BP 147/57, HEART RATE 68. NO SIGNS OF ACUTE DISTRESS. NO SIGNS OF HYPER AND HYPO GLYCEMIA. CONTINUE TO MONITOR.
[2018-01-07 15:11] VITALS: BP 135/65
[2018-01-07] MEDS ORDERED: LIDOCAINE HCL 1% 20 ML VIAL IJ PRN (15:15)
[2018-01-07] MEDS: MIRTAZAPINE 15 MG TABLET PO SCH (17:23)
--- NOTE | 2018-01-07 18:19 | NUR ---
PT HAS BEEN LETHARGIC, SLEEPING ALL DAY WITH NO SIGNS OF ACUTE DISTRESS. WAKES UP FOR SOME MEALS. PT HAS BEEN REFUSING MEDICATION.PT WORKED WITH PHYSICAL THERAPY TODAY. PT OBSERVED SLEEPING IN BED. CONTINUE TO MONITOR PT.
[2018-01-07 19:23] VITALS: BP 144/54
--- NOTE | 2018-01-07 20:05 | NUR ---
Pt sleeping on arrival , laying in Semi fowlers position in bed . No signs of distress . Pt has an IV on left hand , heplock . All safety precautions preserved .
[2018-01-07] MEDS: MELATONIN 3 MG TABLET PO SCH (23:06)
[2018-01-07] MEDS: DOCUSATE SODIUM 100 MG CAPSULE PO SCH (23:07)
[2018-01-07] MEDS: ARIPIPRAZOLE 10 MG TABLET PO SCH (23:07)
[2018-01-07] MEDS: QUETIAPINE FUMARATE 25 MG TABLET PO SCH (23:11)
[2018-01-08 03:31] VITALS: BP 140/64
--- NOTE | 2018-01-08 04:45 | NUR ---
patient in bed asleep no respiratory distress noted breathing even and unlabored .on room air .bed alarm on . continue to make rounds and provide patient safety.
[2018-01-08] MEDS: IV NS 1000 ML 1,000 ML IV PRN (05:18)
[2018-01-08] MEDS: BLOOD SUGAR DIAGNOSTIC 1 EACH STRIP VI SCH ×3 (06:51→16:22)
[2018-01-08] MEDS: MAGNESIUM OXIDE 400 MG TABLET PO SCH ×2 (09:12→16:32)
[2018-01-08] MEDS: ASPIRIN 81 MG TAB.CHEW PO SCH (09:12)
[2018-01-08] MEDS: ASCORBIC ACID 500 MG TABLET PO SCH (09:12)
[2018-01-08] MEDS: FLUTICASONE/VILANTEROL 1 EACH BLST.W.DEV IH SCH (09:12)
[2018-01-08] MEDS: SULFAMETH/TRIMETH 800/160 MG TABLET PO SCH (09:12)
[2018-01-08] MEDS: LACTOBACILLUS RHAMNOSUS GG 1 EACH CAPSULE PO SCH (09:12)
[2018-01-08] MEDS: ZINC SULFATE 220 MG CAPSULE PO SCH (09:12)
[2018-01-08] MEDS: CADEXOMER IODINE 40 GM TUBE TOP SCH (09:13)
[2018-01-08] MEDS: CARVEDILOL 6.25 MG TABLET PO SCH (09:31)
[2018-01-08] MEDS: INSULIN REGULAR, HUMAN 300 UNIT/3 ML VIAL SQ PRN (11:20)
[2018-01-08 12:02] VITALS: BP 160/58
[2018-01-08] MEDS ORDERED: ACET325T53 PO (14:23)
[2018-01-08] MEDS ORDERED: MENT71OI TOP (14:23)
[2018-01-08] MEDS ORDERED: HYDR-3326 PO (14:23)
[2018-01-08] MEDS ORDERED: ZINC220C8 PO (14:23)
[2018-01-08] MEDS ORDERED: LACT1CAP57 PO (14:23)
[2018-01-08] MEDS ORDERED: CADE40GE2 TOP (14:23)
[2018-01-08] MEDS ORDERED: SULF1TAB3 PO (14:23)
[2018-01-08 15:10] VITALS: BP 98/62
--- NOTE | 2018-01-08 16:35 | NUR ---
Pt left for discharge back to [facility]. Discharge instructions provided and discussed with the RN at the facility. Meds reconciled by MD and reviewed with the RN at the facility. RN verbalized understanding of discharge instructions and medications. Left PIV removed. Discharge photos taken and placed in the chart. Pt stable and nad noted upon leaving the floor.
== END 2018-01-08 16:35 | DRG 871 ==
LOC: ER 12:35 → MED 14:59
PROVIDERS: ADMIT Internal Medicine; ATTEND Internal Medicine
PROC: 0Y913ZZ Drainage of Left Buttock, Percutaneous Approach (ICD-10-PCS; principal; 2018-01-05)
PROC: 0HD8XZZ Extraction of Buttock Skin, External Approach (ICD-10-PCS; 2018-01-05)
DX: A41.9 Sepsis, unspecified organism (principal); E43 Unspecified severe protein-calorie malnutrition; G92 Toxic encephalopathy; N39.0 Urinary tract infection, site not specified; L02.31 Cutaneous abscess of buttock; L97.429 Non-pressure chronic ulcer of left heel and midfoot with unspecified severity; D68.59 Other primary thrombophilia; I50.32 Chronic diastolic (congestive) heart failure; E11.65 Type 2 diabetes mellitus with hyperglycemia; Z79.4 Long term (current) use of insulin; E78.5 Hyperlipidemia, unspecified; G30.9 Alzheimer's disease, unspecified; F02.80 Dementia in other diseases classified elsewhere, unspecified severity, without behavioral disturbance, psychotic disturbance, mood disturbance, and anxiety; L98.419 Non-pressure chronic ulcer of buttock with unspecified severity; Z86.14 Personal history of Methicillin resistant Staphylococcus aureus infection; B96.4 Proteus (mirabilis) (morganii) as the cause of diseases classified elsewhere; Z74.09 Other reduced mobility; L90.9 Atrophic disorder of skin, unspecified; J44.9 Chronic obstructive pulmonary disease, unspecified; I35.0 Nonrheumatic aortic (valve) stenosis; Z86.718 Personal history of other venous thrombosis and embolism; I11.0 Hypertensive heart disease with heart failure; Z68.25 Body mass index [BMI] 25.0-25.9, adult; E66.9 Obesity, unspecified; F20.9 Schizophrenia, unspecified; F32.9 Major depressive disorder, single episode, unspecified; I25.10 Atherosclerotic heart disease of native coronary artery without angina pectoris; M19.90 Unspecified osteoarthritis, unspecified site; M81.0 Age-related osteoporosis without current pathological fracture; Z87.891 Personal history of nicotine dependence; Z87.440 Personal history of urinary (tract) infections
CPT/HCPCS: 36415; 71045; 73650; 83605; 83735; 84100; 85025; 85651; 87040; 87070; 87077; 87086; 93005; 97110; 97116; 97530; A4217; A4663; C1758; J0696; J1815; J2060; J2543; J3370; J3490; J7030; J7060

== ENCOUNTER 2018-10-29 10:22 | Inpatient (IN) | payer MEDICARE, MEDICAID ==
[~2018-10-29] VITALS: Ht 152.4 cm; Wt 46.3 kg
[~2018-10-29 10:22] MED LIST changes: +CADE40GE2 TOP; -DOXY100T2 PO; +HYDR-3326 PO; +LACT1CAP57 PO; +MENT71OI TOP; -NITR0.4T48 SL; +SULF1TAB3 PO; +ZINC220C8 PO
[2018-10-29] MEDS ORDERED: [UNRECOGNIZED DRUG - OTHER] PO (11:18)
[2018-10-29] MEDS ORDERED: NUT.237L71 PO (11:18)
[2018-10-29] MEDS ORDERED: INSU100I34 SQ (11:18)
[2018-10-29] MEDS ORDERED: SIMV10TA2 PO (11:18)
[2018-10-29] MEDS ORDERED: LORA-258 PO (11:18)
[2018-10-29] MEDS ORDERED: INSU100V7 SQ ×3 (11:18)
[2018-10-29 11:33] LABS: BASOPHILS # (AUTO) 0.1 K/uL (0.0-8.0); BASOPHILS % (AUTO) 0.7 % (0.0-2.0); EOSINOPHILS # (AUTO) 0.1 K/uL (0.0-0.7); EOSINOPHILS % (AUTO) 0.7 % (0.0-7.0); HEMATOCRIT 37.6 % (31.2-41.9); HEMOGLOBIN 12.5 g/dL (10.9-14.3); LYMPHOCYTES # (AUTO) 2.2 K/uL (20.0-40.0); LYMPHOCYTES % (AUTO) 21.8 % (20.5-51.5); MEAN CORPUSCULAR HGB CONC 33 g/dL (32.3-35.6); MEAN CORPUSCULAR VOLUME 89.8 fL (75.5-95.3); MONOCYTES # (AUTO) 0.6 K/uL (2.0-10.0); MONOCYTES % (AUTO) 6.5 % (0.0-11.0); NEUTROPHILS % (AUTO) 70.3 % (38.5-71.5); PLATELET COUNT (AUTO) 286 K/uL (179-408); RED BLOOD CELL COUNT(AUTO) 4.18 MIL/uL (3.63-4.92); WHITE BLOOD COUNT (AUTO) 9.9 K/uL (3.8-11.8)
--- NOTE | 2018-10-29 11:36 | NUR ---
Patient is resting comfortably in bed with eyes closed. PATIENT IS PAIN FREE AT THIS TIME.
[2018-10-29 11:45] LABS: ALKALINE PHOSPHATASE 57 U/L (50-136); ASPARTATE AMINOTRANSFERASE 16 U/L (15-37); BILIRUBIN,DIRECT 0.1 mg/dL (0.0-0.2); BILIRUBIN,TOTAL 0.3 mg/dL (0.2-1.0); CHLORIDE 106 mmol/L (98-107); CREATININE 0.7 mg/dL (0.6-1.3); GLUCOSE 76 mg/dL (74-106); POTASSIUM 3.9 mmol/L (3.5-5.1); TOTAL PROTEIN, SERUM 7.5 g/dL (6.4-8.2); UREA NITROGEN, BLOOD 13 mg/dL (7-18)
[2018-10-29 12:04] LABS: CARBON DIOXIDE 31 mmol/L (21-32)
[2018-10-29 12:17] LABS: ALANINE AMINOTRANSFERASE 9 U/L (14-59)
--- NOTE | 2018-10-29 13:30 | NUR ---
Received report from Roslyn CONCEPCION in Emergency room. Patient is now admitted to telemetry. will continue to monitor. Addendum: 10/29/18 at 1510 by VALENTIN HOOK RN 4 eyes skin check done with Leah CONCEPCION, photos taken and placed in chart.
[2018-10-29] MEDS: Z GUARD REMEDY PASTE 57 GM TUBE TOP SCH ×2 (14:44→20:36)
[2018-10-29 15:08] VITALS: BP 146/68
[2018-10-29] MEDS ORDERED: ACETAMINOPHEN 325 MG TABLET PO PRN (16:15)
[2018-10-29] MEDS ORDERED: MORPHINE SULFATE 2 MG/1 ML DISP.SYRIN IV PRN (16:15)
[2018-10-29] MEDS ORDERED: ONDANSETRON 4 MG/2 ML VIAL IV PRN (16:15)
[2018-10-29] MEDS ORDERED: ALBUTEROL SULFATE 2.5 MG/3 ML NEBU NEB PRN (16:15)
[2018-10-29] MEDS ORDERED: [UNRECOGNIZED DRUG - OTHER] PO SCH (17:00)
[2018-10-29] MEDS ORDERED: NUT TX GLUC INTOL LF SOY PO SCH (17:00)
[2018-10-29] MEDS ORDERED: Medication Not On Formulary EA (Amino Acids/Protein Hydrolys (Pro-Stat Sugar Free Liquid PO SCH (17:00)
[2018-10-29] MEDS ORDERED: FIBER PO SCH (17:00)
[2018-10-29] MEDS: CARVEDILOL 6.25 MG TABLET PO SCH ×2 (17:32→17:46)
[2018-10-29] MEDS: ASCORBIC ACID 500 MG TABLET PO SCH ×2 (17:32→17:46)
[2018-10-29] MEDS: LORAZEPAM 0.5 MG TABLET PO SCH ×2 (17:32→17:46)
[2018-10-29] MEDS: MAGNESIUM OXIDE 400 MG TABLET PO SCH ×2 (17:32→17:46)
[2018-10-29] MEDS: PROTEIN SUPPLEMENT (PROSTAT) 30 ML LIQUID PO SCH (17:32)
[2018-10-29] MEDS: MIRTAZAPINE 15 MG TABLET PO SCH ×2 (17:34→17:46)
--- NOTE | 2018-10-29 17:40 | NUR ---
Patient angry, spit out tablets. Unable to understand what patient is stating, Mozambican speaking. Best understood that patient wants them with juice. Will reattempt to administer.
--- NOTE | 2018-10-29 18:15 | NUR ---
Patient oriented to self, no pain or distress noted. Patient appears comfortable. [place] speaking, used nurse on floor who is eritrean speaking for regular conversation. Patient requires frequent reorienting. Frequent repositioning and heels offloaded. Skin and fall precautions in place. End of shift chart check done will endorse care to oncoming shift. Unable to obtain urine sample will endorse
[2018-10-29 20:24] VITALS: BP 109/73
[2018-10-29] MEDS: DOCUSATE SODIUM 100 MG CAPSULE PO SCH (20:35)
[2018-10-29] MEDS: ARIPIPRAZOLE 10 MG TABLET PO SCH (20:35)
[2018-10-29] MEDS: MELATONIN 3 MG TABLET PO SCH (20:35)
[2018-10-29] MEDS: SIMVASTATIN 10 MG TABLET PO SCH (20:35)
[2018-10-29] MEDS: BOOST GLUCOSE CONTROL 237 ML LIQUID (VANILLA) PO SCH ×2 (21:00→22:23)
[2018-10-29] MEDS: INSULIN GLARGINE,HUM 300 UNITS/3 ML CARTRIDGE SQ SCH (21:49)
[2018-10-30 00:43] VITALS: BP 125/56
[2018-10-30 05:01] VITALS: BP 123/51
[2018-10-30] MEDS: PANTOPRAZOLE SODIUM 40 MG TABLET.DR PO SCH (06:14)
[2018-10-30] MEDS: DEXTROSE 50% 50 ML DISP.SYRIN IV PRN (06:25)
[2018-10-30] MEDS: BLOOD SUGAR DIAGNOSTIC 1 EACH STRIP VI SCH ×5 (06:34→21:06)
[2018-10-30 07:15] LABS: BASOPHILS % (AUTO) 0.5 % (0.0-2.0); EOSINOPHILS # (AUTO) 0.1 K/uL (0.0-0.7); HEMATOCRIT 36.4 % (31.2-41.9); HEMOGLOBIN 12.1 g/dL (10.9-14.3); LYMPHOCYTES # (AUTO) 2.2 K/uL (20.0-40.0); LYMPHOCYTES % (AUTO) 26.8 % (20.5-51.5); MEAN CORPUSCULAR HGB CONC 33 g/dL (32.3-35.6); MEAN CORPUSCULAR VOLUME 90.4 fL (75.5-95.3); MONOCYTES # (AUTO) 0.6 K/uL (2.0-10.0); NEUTROPHILS # (AUTO) 5.3 K/uL (1.8-8.9); NEUTROPHILS % (AUTO) 64.7 % (38.5-71.5); PLATELET COUNT (AUTO) 291 K/uL (179-408); RED BLOOD CELL COUNT(AUTO) 4.03 MIL/uL (3.63-4.92); WHITE BLOOD COUNT (AUTO) 8.2 K/uL (3.8-11.8)
--- NOTE | 2018-10-30 07:18 | NUR ---
At 0645 accucheck is 56, D50 given at 0715 accucheck is 172, patyient is more alert, open eyes, combative still. Will endorse to the day shift.
[2018-10-30 07:44] LABS: ALANINE AMINOTRANSFERASE 7 U/L (14-59); ALKALINE PHOSPHATASE 52 U/L (50-136); ASPARTATE AMINOTRANSFERASE 16 U/L (15-37); BILIRUBIN,TOTAL 0.4 mg/dL (0.2-1.0); CARBON DIOXIDE 30 mmol/L (21-32); CHLORIDE 107 mmol/L (98-107); GLUCOSE 60 mg/dL (74-106); PHOSPHOROUS 3.6 mg/dL (2.5-4.9); TOTAL PROTEIN, SERUM 7.2 g/dL (6.4-8.2); UREA NITROGEN, BLOOD 16 mg/dL (7-18)
[2018-10-30] MEDS: Z GUARD REMEDY PASTE 57 GM TUBE TOP SCH ×2 (09:00→21:06)
[2018-10-30] MEDS: FLUTICASONE/VILANTEROL 1 EACH BLST.W.DEV IH SCH (09:00)
[2018-10-30] MEDS: LORAZEPAM 0.5 MG TABLET PO SCH ×2 (09:00→17:47)
[2018-10-30] MEDS: BOOST GLUCOSE CONTROL 237 ML LIQUID (VANILLA) PO SCH ×4 (09:00→20:55)
[2018-10-30] MEDS: CARVEDILOL 6.25 MG TABLET PO SCH ×2 (09:00→17:47)
[2018-10-30] MEDS ORDERED: Medication Not On Formulary EA (Multivitamins W-Minerals (Multivitamin With Minerals) 1 PO SCH (09:00)
[2018-10-30] MEDS: PROTEIN SUPPLEMENT (PROSTAT) 30 ML LIQUID PO SCH ×3 (09:00→17:57)
[2018-10-30] MEDS: MULTIVITAMINS,THERAPEUTIC TABLET PO SCH (09:00)
[2018-10-30 09:16] LABS: THYROID STIMULATING HORMONE 0.708 mIU/mL (0.358-3.740)
[2018-10-30] MEDS: ASPIRIN 81 MG TAB.CHEW PO SCH (09:51)
[2018-10-30] MEDS: MAGNESIUM OXIDE 400 MG TABLET PO SCH ×2 (09:56→17:47)
[2018-10-30] MEDS: ZINC SULFATE 220 MG CAPSULE PO SCH (09:57)
[2018-10-30] MEDS: ASCORBIC ACID 500 MG TABLET PO SCH ×2 (09:59→17:47)
[2018-10-30 11:16] VITALS: BP 104/56
[2018-10-30 15:18] VITALS: BP 144/64
[2018-10-30 15:59] LABS: IRON, SERUM 52 ug/dL (50-175)
[2018-10-30 16:25] LABS: CHOLESTEROL 182 mg/dL (<200); HDL CHOLESTEROL 43 mg/dL (40-60); TRIGLYCERIDES 85 MG/DL (30-150)
[2018-10-30] MEDS: MIRTAZAPINE 15 MG TABLET PO SCH (17:47)
[2018-10-30] MEDS: INSULIN REGULAR, HUMAN 300 UNIT/3 ML VIAL SQ PRN ×2 (18:13→21:18)
--- NOTE | 2018-10-30 18:14 | NUR ---
missed accucheck was done. BG 183, patient refused insulin, discussed the risk with the patient, charge nurse notified. patient ate a very small amount during dinner. Will monitor for safety.
[2018-10-30 19:52] VITALS: BP 128/60
--- NOTE | 2018-10-30 20:43 | NUR ---
patient was DC from tele status at 1951. Box removed and returned to the Tech
[2018-10-30] MEDS: MELATONIN 3 MG TABLET PO SCH (20:53)
[2018-10-30] MEDS: DOCUSATE SODIUM 100 MG CAPSULE PO SCH (20:53)
[2018-10-30] MEDS: ARIPIPRAZOLE 10 MG TABLET PO SCH (20:53)
[2018-10-30] MEDS: SIMVASTATIN 10 MG TABLET PO SCH (20:53)
[2018-10-30] MEDS: INSULIN GLARGINE,HUM 300 UNITS/3 ML CARTRIDGE SQ SCH (21:17)
[2018-10-31 05:12] VITALS: BP 167/68
[2018-10-31] MEDS: PANTOPRAZOLE SODIUM 40 MG TABLET.DR PO SCH (06:33)
[2018-10-31] MEDS: BLOOD SUGAR DIAGNOSTIC 1 EACH STRIP VI SCH ×4 (06:54→22:00)
[2018-10-31] MEDS: LORAZEPAM 0.5 MG TABLET PO SCH ×2 (08:30→18:04)
[2018-10-31] MEDS: CARVEDILOL 6.25 MG TABLET PO SCH ×2 (08:36→18:16)
[2018-10-31] MEDS: BOOST GLUCOSE CONTROL 237 ML LIQUID (VANILLA) PO SCH ×4 (08:36→20:27)
[2018-10-31] MEDS: ASPIRIN 81 MG TAB.CHEW PO SCH (08:46)
[2018-10-31] MEDS: MAGNESIUM OXIDE 400 MG TABLET PO SCH ×2 (08:46→18:04)
[2018-10-31] MEDS: PROTEIN SUPPLEMENT (PROSTAT) 30 ML LIQUID PO SCH ×3 (08:47→18:05)
[2018-10-31] MEDS: ASCORBIC ACID 500 MG TABLET PO SCH ×2 (08:47→18:06)
[2018-10-31] MEDS: ZINC SULFATE 220 MG CAPSULE PO SCH (08:47)
[2018-10-31] MEDS: MULTIVITAMINS,THERAPEUTIC TABLET PO SCH (08:47)
[2018-10-31] MEDS: FLUTICASONE/VILANTEROL 1 EACH BLST.W.DEV IH SCH (09:00)
[2018-10-31] MEDS: Z GUARD REMEDY PASTE 57 GM TUBE TOP SCH ×2 (09:00→20:28)
[2018-10-31 11:40] VITALS: BP 152/58
[2018-10-31] MEDS: INSULIN REGULAR, HUMAN 300 UNIT/3 ML VIAL SQ PRN (12:23)
--- NOTE | 2018-10-31 13:48 | NUR ---
The patient is confused, combative and does cooperate. unable to communicate. CARLENE Vasquez and BIRD Henao noted.Called Dr. Barajas and discuss the condition of the patient.
--- NOTE | 2018-10-31 15:08 | NUR ---
WOUND CARE CONSULT: PT REFUSED SKIN ASSESSMENT. PT VERY COMBATIVE AT TIMES. RECOMMENDATIONS MADE FOR SKIN PROTECTION. DISCUSSED WITH NURSING STAFF. MULTIPLE SKIN LESIONS PRESENT ON ADMISSION. DEFER TO MD FOR LESIONS. WILL SEE PT PT CONDITION PERMITS.
[2018-10-31 16:00] VITALS: BP 118/55
[2018-10-31] MEDS: MIRTAZAPINE 15 MG TABLET PO SCH (18:06)
[2018-10-31 18:08] VITALS: BP 128/62
--- NOTE | 2018-10-31 18:55 | NUR ---
PATIENT ALERT BUT CONFUSED , NO PAIN NOTED AND NO SOB NOTED PROVIDE SAFETY AT ALL TIMES, WILL CONTINUE TO MONITOR
[2018-10-31] MEDS: ARIPIPRAZOLE 10 MG TABLET PO SCH (20:27)
[2018-10-31] MEDS: SIMVASTATIN 10 MG TABLET PO SCH (20:27)
[2018-10-31] MEDS: DOCUSATE SODIUM 100 MG CAPSULE PO SCH (20:27)
[2018-10-31] MEDS: MELATONIN 3 MG TABLET PO SCH (20:28)
[2018-10-31] MEDS: INSULIN GLARGINE,HUM 300 UNITS/3 ML CARTRIDGE SQ SCH (22:07)
--- NOTE | 2018-10-31 22:14 | NUR ---
HS accucheck is 153, poor food intake. Given coffee with sugar and a bread roll. Lantus 10 units given, HumulinR held for safety. patient is drowsy but arousable to name, oriented to person and place. Comfort and safety provided
[2018-11-01 06:39] LABS: BASOPHILS % (AUTO) 0.3 % (0.0-2.0); EOSINOPHILS # (AUTO) 0.1 K/uL (0.0-0.7); EOSINOPHILS % (AUTO) 1.2 % (0.0-7.0); HEMATOCRIT 35.9 % (31.2-41.9); LYMPHOCYTES # (AUTO) 2.1 K/uL (20.0-40.0); LYMPHOCYTES % (AUTO) 25.7 % (20.5-51.5); MEAN CORPUSCULAR HEMOGLOBIN 30.2 uug (24.7-32.8); MEAN CORPUSCULAR HGB CONC 33 g/dL (32.3-35.6); MEAN CORPUSCULAR VOLUME 90.4 fL (75.5-95.3); MONOCYTES # (AUTO) 0.6 K/uL (2.0-10.0); MONOCYTES % (AUTO) 7.2 % (0.0-11.0); NEUTROPHILS # (AUTO) 5.4 K/uL (1.8-8.9); NEUTROPHILS % (AUTO) 65.6 % (38.5-71.5); PLATELET COUNT (AUTO) 281 K/uL (179-408); RED BLOOD CELL COUNT(AUTO) 3.97 MIL/uL (3.63-4.92); WHITE BLOOD COUNT (AUTO) 8.2 K/uL (3.8-11.8)
[2018-11-01 06:43] LABS: CARBON DIOXIDE 31 mmol/L (21-32); CHLORIDE 106 mmol/L (98-107); CREATININE 0.9 mg/dL (0.6-1.3); GLUCOSE 154 mg/dL (74-106); MAGNESIUM 1.9 mg/dL (1.8-2.4); PHOSPHOROUS 3.6 mg/dL (2.5-4.9); POTASSIUM 4.2 mmol/L (3.5-5.1); UREA NITROGEN, BLOOD 18 mg/dL (7-18)
[2018-11-01] MEDS: PANTOPRAZOLE SODIUM 40 MG TABLET.DR PO SCH (07:00)
[2018-11-01] MEDS: BLOOD SUGAR DIAGNOSTIC 1 EACH STRIP VI SCH ×4 (07:06→20:19)
--- NOTE | 2018-11-01 08:00 | NUR ---
PATIENT IS ALERT , CON FUSED, NO S/S OF PAIN AND PATIENT HOB ELEVATED, IV INTACT AND PATENT. PROVIDE SAFETY AND COMFORT AT ALL TIMES. WILL CONTINUE TO MONITOR AND CONTINUE PLAN OF CARE.
[2018-11-01] MEDS: INSULIN REGULAR, HUMAN 300 UNIT/3 ML VIAL SQ PRN ×2 (08:34→21:26)
[2018-11-01] MEDS: FLUTICASONE/VILANTEROL 1 EACH BLST.W.DEV IH SCH (09:00)
[2018-11-01] MEDS: BOOST GLUCOSE CONTROL 237 ML LIQUID (VANILLA) PO SCH ×4 (09:00→21:23)
[2018-11-01] MEDS: CARVEDILOL 6.25 MG TABLET PO SCH ×2 (09:00→17:32)
[2018-11-01] MEDS: PROTEIN SUPPLEMENT (PROSTAT) 30 ML LIQUID PO SCH ×3 (09:00→17:00)
[2018-11-01] MEDS: LORAZEPAM 0.5 MG TABLET PO SCH ×2 (09:21→17:32)
[2018-11-01] MEDS: ASPIRIN 81 MG TAB.CHEW PO SCH (09:22)
[2018-11-01] MEDS: MAGNESIUM OXIDE 400 MG TABLET PO SCH ×2 (09:25→17:32)
[2018-11-01] MEDS: ZINC SULFATE 220 MG CAPSULE PO SCH (09:25)
[2018-11-01] MEDS: ASCORBIC ACID 500 MG TABLET PO SCH ×2 (09:25→17:32)
[2018-11-01] MEDS: Z GUARD REMEDY PASTE 57 GM TUBE TOP SCH ×2 (09:27→21:40)
[2018-11-01] MEDS: MULTIVITAMINS,THERAPEUTIC TABLET PO SCH (09:35)
[2018-11-01 11:00] VITALS: BP 138/60
--- NOTE | 2018-11-01 11:30 | NUR ---
SEEN AND EVALUATED BY DOCTOR TANYA , ASK DOCTOR TANYA IF I CAN GIVE THE PATIENT PRN ATIVAN BEFORE THE THORACENTESIS AND DOCTOR DECLINE PRE MEDICATION FOR THE PATIENT.
--- NOTE | 2018-11-01 13:00 | NUR ---
CONSENT FOR THORACENTESIS SIGNED AND THORACENTESIS DONE BY DR. FRAGA, 600ML OF FLUID TAKEN OUT, AND CHEST XRAY DONE STAT AFTERWARD. PATIENT WAS ABLE TO TOLERATE IT. NO C/O PAIN NOTED AT THIS TIME Addendum: 11/01/18 at 1832 by ROLO CASTANEDA RN FOR 1330
--- NOTE | 2018-11-01 13:01 | NUR ---
WOUND CARE CONSULT: PT PRESENTS WITH HEALING AREA FROM PREVIOUS I&D TO LEFT LOWER BUTTOCK, RASH TO PERINEUM, BUTTOCKS AND BREASTFOLDS, AND MULTIPLE SKIN LESIONS, PRESENT ON ADMISSION. RECOMMENDATIONS MADE FOR SKIN PROTECTION AND CARE. DEFER TO MD FOR SKIN LESIONS. DISCUSSED WITH NURSING STAFF. WILL SEE PRN. IN AGREEMENT WITH PLAN OF CARE. PT COMBATIVE AT TIMES. Addendum: 11/01/18 at 1305 by COLUMBA COREA RN Amended: Links added.
[2018-11-01] MEDS: NEOMY/BACITRAC/POLYMI OINT 28.35 GM TUBE TOP SCH (14:27)
[2018-11-01 15:42] VITALS: BP 154/72
[2018-11-01] MEDS: MIRTAZAPINE 15 MG TABLET PO SCH (17:32)
[2018-11-01] MEDS: CLOTRIMAZOLE 1% CREAM 30 GM TUBE TOP SCH (18:05)
--- NOTE | 2018-11-01 18:33 | NUR ---
PATIENT ALERT AND ORIENTED 1, , CONFUSED, HOB ELEVATED WITH NO C/O PAIN AT THIS TIME. PATIENT IS WATCHING TV, PROVIDE SAFETY AND COMFORT AT ALL TIMES. WILL CONTINUE TREATMENT PLAN.
[2018-11-01 20:00] VITALS: BP 132/53
--- NOTE | 2018-11-01 20:00 | NUR ---
RECEIVED PATIENT LAYING IN BED, RESTING COMFORTABLY. PATIENT IS ALERT/ORIENTED X1. PATIENT HAS NO SIGNS OR SYMPTOMS OF PAIN OR ACUTE DISTRESS AT THIS TIME. ALL SAFETY AND FALL PRECAUTION MEASURES ARE IN PLACE. CALL LIGHT AND PERSONAL ITEMS ARE WITHIN REACH AT ALL TIMES. WILL CONTINUE TO MONITOR.
[2018-11-01] MEDS: DOCUSATE SODIUM 100 MG CAPSULE PO SCH (21:21)
[2018-11-01] MEDS: MELATONIN 3 MG TABLET PO SCH (21:21)
[2018-11-01] MEDS: SIMVASTATIN 10 MG TABLET PO SCH (21:21)
[2018-11-01] MEDS: ARIPIPRAZOLE 10 MG TABLET PO SCH (21:21)
[2018-11-01] MEDS: INSULIN GLARGINE,HUM 300 UNITS/3 ML CARTRIDGE SQ SCH (21:25)
[2018-11-02] MEDS: DEXTROSE 50% 50 ML DISP.SYRIN IV PRN (06:02)
[2018-11-02] MEDS: BLOOD SUGAR DIAGNOSTIC 1 EACH STRIP VI SCH ×5 (06:02→21:39)
--- NOTE | 2018-11-02 06:03 | NUR ---
AC ACCUCHECK IS 48. GAVE D50 VIA IV PUSH. WILL CONTINUE TO MONITOR.
[2018-11-02] MEDS: PANTOPRAZOLE SODIUM 40 MG TABLET.DR PO SCH (06:14)
[2018-11-02 06:23] LABS: BASOPHILS % (AUTO) 0.3 % (0.0-2.0); EOSINOPHILS # (AUTO) 0.1 K/uL (0.0-0.7); EOSINOPHILS % (AUTO) 1.3 % (0.0-7.0); HEMATOCRIT 37.1 % (31.2-41.9); HEMOGLOBIN 12.3 g/dL (10.9-14.3); LYMPHOCYTES # (AUTO) 1.9 K/uL (20.0-40.0); MEAN CORPUSCULAR HEMOGLOBIN 30.1 uug (24.7-32.8); MEAN CORPUSCULAR HGB CONC 33 g/dL (32.3-35.6); MEAN CORPUSCULAR VOLUME 90.4 fL (75.5-95.3); MONOCYTES # (AUTO) 0.7 K/uL (2.0-10.0); MONOCYTES % (AUTO) 7.2 % (0.0-11.0); NEUTROPHILS # (AUTO) 6.5 K/uL (1.8-8.9); NEUTROPHILS % (AUTO) 70.2 % (38.5-71.5); PLATELET COUNT (AUTO) 298 K/uL (179-408); WHITE BLOOD COUNT (AUTO) 9.3 K/uL (3.8-11.8)
[2018-11-02 06:27] VITALS: BP 119/57
[2018-11-02 06:42] LABS: CARBON DIOXIDE 32 mmol/L (21-32); CHLORIDE 107 mmol/L (98-107); CREATININE 0.9 mg/dL (0.6-1.3); GLUCOSE 61 mg/dL (74-106); UREA NITROGEN, BLOOD 20 mg/dL (7-18)
--- NOTE | 2018-11-02 06:46 | NUR ---
PATIENT SLEPT COMFORTABLY THROUGHOUT NIGHT. NO SIGNS OR SYMPTOMS OF ACUTE DISTRESS OR DISCOMFORT WERE NOTED OR OBSERVED. PRESCRIBED MEDICATIONS PROVIDED ORDERED. ALL SAFETY AND FALL PRECAUTIONS REMAIN IN PLACE. CALL LIGHT AND PERSONAL ITEMS REMAIN WITHIN REACH.
--- NOTE | 2018-11-02 06:46 | NUR ---
RECHECK OF AC BLOOD SUGAR AFTER IV D50 REFLECTS BLOOD SUGAR OF 178.
--- NOTE | 2018-11-02 08:00 | NUR ---
resting comfortably in bed with eyes closed, easily awaken to touch and verbal stimuli, no ss of respiratory distres or pain. closely monitored for hypo or hyperglycemia
[2018-11-02] MEDS: FLUTICASONE/VILANTEROL 1 EACH BLST.W.DEV IH SCH (08:21)
[2018-11-02] MEDS: MULTIVITAMINS,THERAPEUTIC TABLET PO SCH (08:22)
[2018-11-02] MEDS: PROTEIN SUPPLEMENT (PROSTAT) 30 ML LIQUID PO SCH ×3 (08:22→17:02)
[2018-11-02] MEDS: ZINC SULFATE 220 MG CAPSULE PO SCH (08:22)
[2018-11-02] MEDS: MAGNESIUM OXIDE 400 MG TABLET PO SCH ×2 (08:22→16:58)
[2018-11-02] MEDS: LORAZEPAM 0.5 MG TABLET PO SCH ×2 (08:22→16:58)
[2018-11-02] MEDS: ASCORBIC ACID 500 MG TABLET PO SCH ×3 (08:22→16:58)
[2018-11-02] MEDS: ASPIRIN 81 MG TAB.CHEW PO SCH (08:22)
[2018-11-02] MEDS: CARVEDILOL 6.25 MG TABLET PO SCH ×2 (08:24→17:02)
[2018-11-02] MEDS: Z GUARD REMEDY PASTE 57 GM TUBE TOP SCH ×2 (08:28→21:42)
[2018-11-02] MEDS: CLOTRIMAZOLE 1% CREAM 30 GM TUBE TOP SCH ×2 (08:28→17:01)
[2018-11-02] MEDS: NEOMY/BACITRAC/POLYMI OINT 28.35 GM TUBE TOP SCH (08:28)
[2018-11-02] MEDS: BOOST GLUCOSE CONTROL 237 ML LIQUID (VANILLA) PO SCH ×4 (09:31→21:42)
--- NOTE | 2018-11-02 09:39 | NUR ---
PATIENT CONTINUE TO BE NONCOMPLIANT, REFUSED TO EAT HER BREAKFAST AND REFUSED HER MEDS. WILL INFORM MD ABOUT NEXT POC. SEEN BY PT, SEE PT NOTES
[2018-11-02] MEDS: IV D5/ 0.9% NACL 1,000 ML IV PRN (11:14)
[2018-11-02 11:48] VITALS: BP 126/55
--- NOTE | 2018-11-02 12:00 | NUR ---
PATIENT CONTINUE TO REFUSE TO EAT AND REFUSED TO TAKE MEDS, DR GREGG NOTIFIED WITH ORDER TO START ON D5NS AT 75MLS/HR AND CALL DR BLEVINS FOR PSYCH EVAL.
[2018-11-02 15:04] VITALS: BP 123/58
--- NOTE | 2018-11-02 16:29 | NUR ---
DR. BLEVINS CAME AND STATED WILL SEE PATIENT TOMORROW
[2018-11-02] MEDS: INSULIN REGULAR, HUMAN 300 UNIT/3 ML VIAL SQ PRN (16:58)
[2018-11-02] MEDS: MIRTAZAPINE 15 MG TABLET PO SCH (17:01)
--- NOTE | 2018-11-02 19:20 | NUR ---
RECEIVED PT ON BED. PT SHOWS NO SIGNS OF ACUTE DISTRESS. PT IV INTACT. SAFETY AND COMFORT PROVIDED. WILL CONTINUE TO MONITOR.
[2018-11-02 20:00] VITALS: BP 138/58
[2018-11-02] MEDS: DOCUSATE SODIUM 100 MG CAPSULE PO SCH (21:30)
[2018-11-02] MEDS: ARIPIPRAZOLE 10 MG TABLET PO SCH (21:30)
[2018-11-02] MEDS: SIMVASTATIN 10 MG TABLET PO SCH (21:30)
[2018-11-02] MEDS: MELATONIN 3 MG TABLET PO SCH (21:31)
[2018-11-02] MEDS: INSULIN GLARGINE,HUM 300 UNITS/3 ML CARTRIDGE SQ SCH (21:40)
[2018-11-03] MEDS: IV D5/ 0.9% NACL 1,000 ML IV PRN (00:30)
[2018-11-03 05:15] VITALS: BP 149/65
[2018-11-03] MEDS: PANTOPRAZOLE SODIUM 40 MG TABLET.DR PO SCH (06:08)
[2018-11-03 06:27] LABS: BASOPHILS % (AUTO) 0.3 % (0.0-2.0); EOSINOPHILS # (AUTO) 0.1 K/uL (0.0-0.7); EOSINOPHILS % (AUTO) 1.4 % (0.0-7.0); HEMATOCRIT 34.4 % (31.2-41.9); HEMOGLOBIN 11.5 g/dL (10.9-14.3); LYMPHOCYTES # (AUTO) 2.2 K/uL (20.0-40.0); LYMPHOCYTES % (AUTO) 25.6 % (20.5-51.5); MEAN CORPUSCULAR HEMOGLOBIN 30.3 uug (24.7-32.8); MEAN CORPUSCULAR HGB CONC 34 g/dL (32.3-35.6); MEAN CORPUSCULAR VOLUME 90.2 fL (75.5-95.3); MONOCYTES # (AUTO) 0.6 K/uL (2.0-10.0); MONOCYTES % (AUTO) 7.6 % (0.0-11.0); NEUTROPHILS # (AUTO) 5.5 K/uL (1.8-8.9); NEUTROPHILS % (AUTO) 65.1 % (38.5-71.5); PLATELET COUNT (AUTO) 270 K/uL (179-408); RED BLOOD CELL COUNT(AUTO) 3.81 MIL/uL (3.63-4.92); WHITE BLOOD COUNT (AUTO) 8.5 K/uL (3.8-11.8)
[2018-11-03] MEDS: BLOOD SUGAR DIAGNOSTIC 1 EACH STRIP VI SCH ×4 (06:35→17:05)
--- NOTE | 2018-11-03 06:36 | NUR ---
PT SLEPT THROUGHOUT THE SHIFT. PT SHOWS NO SIGNS OF ACUTE DISTRESS. IV INTACT. PRESCRIBED MEDICATION GIVEN AND PT TOLERATED IT WELL. SAFETY AND COMFORT PROVIDED. PT TURNED AND REPOSITIONED ACCORDINGLY. ALL NEEDS ARE MET. WILL ENDORSE ACCORDINGLY TO INCOMING NURSE FOR CONTINUITY OF CARE.
[2018-11-03 06:43] LABS: CARBON DIOXIDE 30 mmol/L (21-32); CHLORIDE 111 mmol/L (98-107); CREATININE 0.9 mg/dL (0.6-1.3); GLUCOSE 136 mg/dL (74-106); MAGNESIUM 1.7 mg/dL (1.8-2.4); PHOSPHOROUS 2.7 mg/dL (2.5-4.9); POTASSIUM 3.8 mmol/L (3.5-5.1); UREA NITROGEN, BLOOD 21 mg/dL (7-18)
--- NOTE | 2018-11-03 07:47 | NUR ---
Patient comfortable in bed with no signs of distress. Patient call light with in reach; all safety measures in place.
--- NOTE | 2018-11-03 08:00 | NUR ---
AWAKE ALERT ANSWERS QUESTIONS BUT SHORT TERM MEMORY, CAN BE COMBATIVE AND UNCOOPERATIVE IN TAKING MEDS. NEEDS REINFORCEMENT AND REALITY ORIENTATION. WILL CONTINUE TO MONITOR HYPO OR HYPERGLYCEMIA.
[2018-11-03] MEDS: MAGNESIUM OXIDE 400 MG TABLET PO SCH (08:28)
[2018-11-03] MEDS: FLUTICASONE/VILANTEROL 1 EACH BLST.W.DEV IH SCH (08:28)
[2018-11-03] MEDS: ASCORBIC ACID 500 MG TABLET PO SCH (08:32)
[2018-11-03] MEDS: CARVEDILOL 6.25 MG TABLET PO SCH (08:32)
[2018-11-03] MEDS: ASPIRIN 81 MG TAB.CHEW PO SCH (08:33)
[2018-11-03] MEDS: LORAZEPAM 0.5 MG TABLET PO SCH (08:33)
[2018-11-03] MEDS: ZINC SULFATE 220 MG CAPSULE PO SCH (08:33)
[2018-11-03] MEDS: MULTIVITAMINS,THERAPEUTIC TABLET PO SCH (08:34)
[2018-11-03] MEDS: PROTEIN SUPPLEMENT (PROSTAT) 30 ML LIQUID PO SCH ×2 (08:34→12:33)
[2018-11-03] MEDS: CLOTRIMAZOLE 1% CREAM 30 GM TUBE TOP SCH (08:35)
[2018-11-03] MEDS: NEOMY/BACITRAC/POLYMI OINT 28.35 GM TUBE TOP SCH (08:35)
[2018-11-03] MEDS: Z GUARD REMEDY PASTE 57 GM TUBE TOP SCH (08:35)
[2018-11-03] MEDS: BOOST GLUCOSE CONTROL 237 ML LIQUID (VANILLA) PO SCH ×2 (08:36→12:33)
[2018-11-03] MEDS: INSULIN REGULAR, HUMAN 300 UNIT/3 ML VIAL SQ PRN ×2 (08:37→12:31)
[2018-11-03] MEDS ORDERED: MAGNESIUM SULFATE/D5W 100 ML IV SCH (08:45)
--- NOTE | 2018-11-03 10:30 | NUR ---
SEEN BY PHYSICAL THERAPIST SEE NOTES
[2018-11-03 11:02] VITALS: BP 137/53
--- NOTE | 2018-11-03 13:00 | NUR ---
SEEN BY DR GREGG WITH ORDER TO DISCHAGE BACK TO SNF. SEE NOTES
[2018-11-03 15:01] VITALS: BP 134/56
--- NOTE | 2018-11-03 15:51 | NUR ---
SNF NOTIFIED OF DISCHARGE AND ETA VIA AMBULANCE
--- NOTE | 2018-11-03 16:34 | NUR ---
BS FINGER STICK 69, AWAKE ALERT, WARM AND DRY SKIN. TOLERATED ORANGE JUICE. OBSERVED
--- NOTE | 2018-11-03 17:33 | NUR ---
DISCHARGED TO [facility] VIA AMBULANCE. REPORT GIVEN BOTH TO FACILITY AND AMBULANCE. LATEST BLOOD SUGAR 121. PATIENT ATE DINNER WELL. NO SS OF HYPOGLYCEMIA OR HYPERGLYCEMIA
== END 2018-11-03 18:20 | DRG 186 ==
LOC: ER 10:24 → MEDSURG3 12:35 → TELE3 13:29 → MEDSURG3 10-30 20:10
PROVIDERS: ADMIT Internal Medicine; ATTEND Internal Medicine
PROC: 0W9B3ZX Drainage of Left Pleural Cavity, Percutaneous Approach, Diagnostic (ICD-10-PCS; principal; 2018-11-01)
DX: J90 Pleural effusion, not elsewhere classified (principal); E43 Unspecified severe protein-calorie malnutrition; J98.19 Other pulmonary collapse; Z68.1 Body mass index [BMI] 19.9 or less, adult; D68.59 Other primary thrombophilia; L97.429 Non-pressure chronic ulcer of left heel and midfoot with unspecified severity; L03.116 Cellulitis of left lower limb; I50.32 Chronic diastolic (congestive) heart failure; J98.11 Atelectasis; G30.9 Alzheimer's disease, unspecified; F02.80 Dementia in other diseases classified elsewhere, unspecified severity, without behavioral disturbance, psychotic disturbance, mood disturbance, and anxiety; C44.309 Unspecified malignant neoplasm of skin of other parts of face; E78.5 Hyperlipidemia, unspecified; Z87.891 Personal history of nicotine dependence; E11.621 Type 2 diabetes mellitus with foot ulcer; F20.9 Schizophrenia, unspecified; E11.65 Type 2 diabetes mellitus with hyperglycemia; M19.90 Unspecified osteoarthritis, unspecified site; M81.0 Age-related osteoporosis without current pathological fracture; Z86.718 Personal history of other venous thrombosis and embolism; I25.10 Atherosclerotic heart disease of native coronary artery without angina pectoris; K80.20 Calculus of gallbladder without cholecystitis without obstruction; I11.0 Hypertensive heart disease with heart failure; I44.0 Atrioventricular block, first degree; I35.0 Nonrheumatic aortic (valve) stenosis; J44.9 Chronic obstructive pulmonary disease, unspecified; F32.9 Major depressive disorder, single episode, unspecified; Z79.51 Long term (current) use of inhaled steroids; Z79.82 Long term (current) use of aspirin; Z79.899 Other long term (current) drug therapy; Z88.1 Allergy status to other antibiotic agents; I70.0 Atherosclerosis of aorta; E11.649 Type 2 diabetes mellitus with hypoglycemia without coma; Z79.4 Long term (current) use of insulin
CPT/HCPCS: 32555; 36415; 70030-TC; 71045; 71250; 83550; 83615; 83735; 83986; 84100; 84155; 84443; 85025; 85730; 87070; 87205; 93005; 93880; 97110; 97116; 97530; A4663; G0378; J1815; J3475; J3490; J7042